=== PATIENT | female | born 1940 | race Caucasian/White ===

== ENCOUNTER 2024-07-26 19:04 | Emergency (ER) | payer OTHER, SELFPAY ==
--- NOTE | ~2024-07-26 | XR_ITS ---
EXAM: XR hip LT 2V w AP pelvis DATE: 07/26/2024 20:39 HISTORY: left hip pain, fall . COMPARISON: 01/30/2019. FINDINGS: Decreased mineralization. No fracture or dislocation. No lytic or blastic lesion. Left hip arthroplasty hardware, no hardware fracture or abnormal perihilar hardware lucency. Heterotopic bone formation at the left hip. Aortic endograft. Lumbar fusion hardware. No erosion or periosteal change . Urine collection device. Atherosclerotic calcifications. Surgical clips over the lower lumbar spine and left hip. IMPRESSION: No acute osseous finding in the pelvis or left hip. No radiographic evidence of hardware related complication. Reviewed, dictated and finalized at location K. ING AND BAKING OPERATOR
--- NOTE | ~2024-07-26 | CT_ITS ---
EXAMINATION: CT brain wo con DATE: 07/26/2024 20:51 INDICATION: fall . TECHNIQUE: Computed tomography (CT) of the head was performed without intravenous contrast. The mA wa s adjusted according to patient size. Iterative reconstruction technique was employed. The dose-lengt h product was 983.67 mGy-cm. COMPARISON: None. FINDINGS: No acute intracranial hemorrhage or extra-axial fluid collection. No hydrocephalus, mass, or herniation. No acute ischemic infarct. Unremarkable dural venous sinus attenuation. No acute osseous abnormality. Poorly pneumatized mastoid air cells. Left middle ear fluid. Bilateral maxillary and ethmoid mucosal thickening, the remaining aerated spaces are clear. Mild atrophy and chronic white matter change. Atherosclerotic intracranial calcification. Bilateral l ens replacements. The right ossicles are not confidently visualized, remaining middle ear structures on the right appear normal. IMPRESSION: No acute intracranial process. Reviewed, dictated and finalized at location K. OGRAPHIC RETOUCHER APPRENTICE
--- NOTE | ~2024-07-26 | XR_ITS ---
EXAMINATION: XR chest 1V Exam Date/Time: 07/26/2024 20:30 CIRCULAR KNITTER HISTORY: fall Comparison: 05/02/2004. RESULT: Lines, tubes, and devices: Left chest pacer with intact leads. Incompletely visualized aortic stent graft and lumbar fusion hardware. Lungs and pleura: Senescent/emphysematous change, otherwise clear. Cardiomediastinal silhouette: Stable. Other: No acute osseous or upper abdominal finding. IMPRESSION: No acute cardiopulmonary process. Reviewed, dictated and finalized at location K. ULAR KNITTER
--- NOTE | ~2024-07-26 | CT_ITS ---
EXAMINATION: CT pelvis wo con DATE: 07/26/2024 23:30 INDICATION: Left hip pain post fall TECHNIQUE: High resolution computed tomography (CT) of the pelvis was performed without intravenous c ontrast. Additional sagittal and coronal reconstructions were performed. Automated exposure control a nd iterative reconstruction technique were employed. The dose-length product was 187.72 mGy-cm. COMPARISON: Radiographs dated 07/26/[address] dated 01/28/2019 FINDINGS: L4 laminectomy. Partially visualized lower lumbar posterior spinal fusion with bilateral vertical ben and pedicle screw fixation at L4-L5. There is also anterior spinal fusion with bone graft cage at L4 -L5. Chronic bone graft harvest site at the left posterior iliac spine. Partially visualized noncemen lydia left total hip arthroplasty which appears well seated with no periprosthetic lucency to suggest l oosening or infection. 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 No acute fractures. 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 Partially visualized aortobiiliac endoluminal stent graft extending to the bifurcation of the bila teral common iliac arteries. There multiple diverticula along the visualized portions of the colon wi thout adjacent from trace stranding to suggest diverticulitis. Bladder is normal. The uterus is not i dentified and has likely been surgically resected. No free fluid in the pelvis. No pathologically enl arged pelvic or inguinal lymphadenopathy. IMPRESSION: 1. Status post left total hip arthroplasty with chronic nonunited avulsion fracture at the left great er trochanter. No acute osseous abnormality. 2. Postoperative changes in the lower lumbar spine including L4 laminectomy and partially visualized and instrumented anterior and posterior spinal fusion at L4-L5 which extends to L3-L4 on the prior ra diographs. 3. Diverticulosis. Reviewed, dictated and finalized at location A. MODERATOR IMPRESSION: 1. Status post left total hip arthroplasty with chronic nonunited avulsion frac ture at the left greater trochanter. No acute osseous abnormality. 2. Postoperative changes in the lower lumbar spine including L4 laminectomy and partially visualized and instrumented anterior and posterior spinal fusion at L4-L5 which extends to L3-L4 on the prior radiographs. 3. Diverticulosis.
--- OUTSIDE RECORDS SUMMARY | 2024-07-26 19:05 | XMS_ITS | Referral Summary ---
Author Organization [facility] Address [address] [place] [address] Care Team Providers Care License Inspector Name Role Phone Anya Whittaker RN Unavailable [phone] Urbano Gonzalez MD Primary Care Provider [phone] Source Comments [facility],non-owned Affiliates and Associated Physician Practices is amultiple site organization consisting of ambulatory clinics and hospital sitesin [place], [place], [place] and [place]. This disclosure is being madepursuant to the Care Everywhere program and may not contain all information available regarding this patient. Last updated 18.[facility] Allergies Active Allergy Reactions Criticality Noted Date Comments Aspirin 02/10/2010 Stomach upset Propoxyphene Nausea and/or Vomiting 02/10/2010 Epinephrine Seizures 11/10/2014 Used with lidocaine at dentist, had seizure from it per patient Morphine Nausea and/or Vomiting 11/10/2014 Dsywvdrl-Qcvfonctkb-Dii ymyxin Rash Low 02/10/2010 Propoxyphene N-Apap Nausea and/or Vomiting 02/10/2010 Tramadol Nausea and/or Vomiting 11/10/2014 Medications * Be aware that medications may not be up to date on this document. Alwaysverify current medications with the patient. Medication Sig Dispensed Refills Start Date End Date Status omeprazole (PRILOSEC) 20 MG capsule Take 20 mg by mouth daily before breakfast. Active aspirin (ASPIRIN) 81 MG tablet Take 81 mg by mouth once daily Takes every other day (will bruise badly with daily adm - MD aware_ Active simvastatin (ZOCOR) 20 MG tablet Take 20 mg by mouth once daily Active gabapentin (NEURONTIN) 600 MG tablet Take 600 mg by mouth 2 times daily Active sertraline (ZOLOFT) 100 MG tablet 03/18/2017 Active lisinopril (PRINIVIL; ZESTRIL) 40 MG tablet Take 40 mg by mouth once daily Active acetaminophen-codei ne (TYLENOL #3) 300-30 MG tablet Take 1 tablet by mouth every 6 hours as needed for Pain 15 tablet 01/02/2018 Active Additional Information Patient not taking.Reported on 05/08/2019 amLODIPine (NORVASC) 5 MG tablet Take 1 tablet by mouth once daily 90 tablet 5 07/15/2018 Active Additional Information Patient not taking.Reported on 05/08/2019 Active Problems Problem Noted Date Diagnosed Date Cardiac pacemaker in situ 01/16/2018 Bradycardia on ECG 12/10/2017 Exertional dyspnea 12/10/2017 SSS (sick sinus syndrome) 12/10/2017 History of AAA (abdominal aortic aneurysm) repai r 12/10/2017 Current smoker 12/10/2017 Essential hypertension 12/10/2017 Dyslipidemia 12/10/2017 Abdominal aortic aneurysm (AAA) without rupture 03/31/2016 Dizzy 02/10/2010 Social History Tobacco Use Types Packs/Day Years Used Date Smoking Tobacco: Former Cigarettes 2 20 Smokeless Tobacco: Never Tobacco Cessation:Ready to Q uit: No; Counseling Given: Yes Alcohol Use Standard Drinks/Week Comments No 0 (1 standard drink = 0.6 oz pur e alcohol) Sex and Gender Information Value Date Recorded Sex Assigned at Not on file Gender Identity Not on file Sexual Orientation Not on file Last Filed Vital Signs Vital Sign Reading Time Taken Comments Blood Pressure 156/71 05/08/2019 12:54 PM PAPER INSERTER Pulse 64 05/08/2019 12:54 PM PAPER INSERTER Temperature 36.4 ??C (97.6 ??F) 05/08/2019 12:[address] Respiratory Rate 16 11/01/2018 10:16 AM CDT Oxygen Saturation 97% 05/08/2019 12:54 PM PAPER INSERTER Inhaled Oxygen Concentration - - Weight 61.2 kg (135 lb) 05/08/2019 2:29 PM PAPER INSERTER Height 170.2 cm (5' 7 ) 05/08/2019 2:29 PM PAPER INSERTER Body Mass Index 21.14 05/08/2019 2:29 PM PAPER INSERTER Functional Status Functional Status Response Date of Assess ment Is person deaf or have sal us hearing difficulty? No-uses hearing aid to right ear 12/09/2014 Is person blind or have seri ous difficulty seeing? No 12/09/2014 Does person have serious difficulty walking/climbing stairs? No 12/09/2014 Does person have difficulty dressing/bathing? No 12/09/2014 Does person have difficulty doing errands alone? No 12/09/2014 Cognitive Status Response Date of Assessm ent Does person have difficulty concentrating/remembering/making decisions? No 12/09/2014 Plan of Treatment Not on file Medical Devices Implanted Type Area Propulsion Machinery Service Engineer Device Identifier Shelf Expiration Date Model / Serial / Lot Excluder [id number] 28mm X 12.0mm X 16cm - [id number] Implanted:Qty: 1 on 12/09/2014 by Chuck Anderson MD at [facility] Left: Groin [employer] 07/25/2017 [id number] / [id number] / Grft Excluder Contra 12mm X 120mm Implanted:Qty: 1 on 12/09/2014 by Chuck Anderson MD at [facility] Left: [employer] [id number] / / Advance Directives * Full Code (Latest Code Status on File) Date Activated Date Inactivated Comments 12/09/2014 2:47 PM 12/10/2014 11:40 AM Care Teams License Inspector Relationship Specialty Start Date End Date Urbano Gonzalez MD [address] [place] [address] PCP - General Internal Medicine 04/25/16 Anya Whittaker, RN Waist Cutter 12/09/14
--- OUTSIDE RECORDS SUMMARY | 2024-07-26 19:05 | XMS_ITS | Continuity of Care Document ---
Author Organization [facility] Address [address] [place] [address] Phone Care Team Providers Care Balloon Artist Name Role Phone Faisal Koch Unavailable Unavailable Procedures Procedure Date Post-op Follow-up Visit BF Plastic Sphcyl [place] To +/-4d .12-2d Vision Svcs Frames Purchases Frames Deluxe Scratch Resistant Coating Post-op Follow-up Visit Remove Cataract, Insert Lens PreOp Assessment Performed Eye Exam, New Patient Echo Exam Of Eye Advance Directives Directive Yes / No Effective Date File Name No Information Encounters Encounter Description Practice Location Reason(s) For Visit Diagnoses Date Provider Providers Copied on Encounter [facility], [address] [place] [address] [address], [place], [place], [id number], [place] tel:[phone] SEC [facility][note 3] No Information Oct-2 2-201 0 Zee Malone. [facility] , [address], [place], [address], [place]. tel:[phone] [facility], [address] [place] [address] [address], [place], [place], [id number], [place] tel:[phone] [facility][note 3] No Information Oct-2 2-201 0 [facility] . [address], [address], [place], [place], [id number], [place]. tel:[phone] Referring Provider: [facility] [address], [place], [place], [facility]. tel:[phone] [facility], [address] [place] [address] [address], [place], [place], [id number], tel:[phone] SEC [facility] No Information Oct-0 8-201 0 [facility]. [facility] [address], [address], [place], [place], [facility], [place]. tel:[phone] [facility], [address], [place], [place], [id number], tel:[phone] [facility] No Information Oct-0 7-201 0 Zee Malone. [address] [place] [address] [address], [address], [place], [place], [facility], . tel:[phone] [facility], [address] [place] [address] [address], [place], [place], [id number], tel:[phone] [facility] No Information Sep-2 4-201 0 Zee Malone. [address] [place] [address] [address], [address], [place], [place], [facility], . tel:[phone] Referring Provider: Faisal Joiner, [facility] [address], [place], [place], [facility]. tel:[phone] Family History Family Member Type Diagnosis Age At Onset No Information Payers Payer name Insurance type Covered republican ID Authoriza tion(s) No Information Social History Type Description Quantity Date Captured Comments Sex Female Smoking Status No Information Chief Complaint And Reason For Visit No Information Reason For Referral Reason For Referral No Information History Of Present Illness Encounter Date Complaint History Of Prese nt Illness No Information Functional Status Date Functional Assessmen t No Information Instructions Date Instruction Additional Infor mation No Information Assessments Type Assessment Date No Information Patient Care Teams Name Effective Dates (start - stop) Status Members No Information
--- OUTSIDE RECORDS SUMMARY | 2024-07-26 19:05 | XMS_ITS | CONTINUITY OF CARE DOCUMENT ---
Author Name agnes alarcon Address Unknown Organization [facility] Address [address] [place] [address] Phone [phone] Care Team Providers Care Bilingual Speech Language Pathologist Name Role Phone Richi Sparks MD Unavailable Urbano Gonzalez MD Unavailable Urbano Gonzalez MD Unavailable [phone] PROBLEMS Condition Status Date Provider Notes Bradycardia active Richi Sparks MD Hypertension active Richi Sparks MD Carotid bruit active Richi Sparks MD Tobacco abuse active Osmar Samuel ENCOUNTERS Date Type Provider Location Encounter Diag nosis 5 - 5 In-person encounter Office Visit Richi Sparks MD [facility] Tobacco abuse 3 - 3 In-person encounter Office Visit Richi Sparks MD [facility] 6 - 3 In-person encounter Office Visit Richi Sparks MD [facility] BradycardiaHypertensionCarotid bruit VITAL SIGNS Date Observation Value Provider Body Mass Index (Ratio) 19.61 kg/m2 Will christian Samuel pulse rate 72 /min Xu ritchie oxygen saturation, oximetry 99 % Xu Eckert blood pressure, diastolic 64 mm[Hg] Noel Eckert blood pressure, systolic 124 mm[Hg] Mary Eckert respiratory rate E&M 16 /min Xu Eckert weight E&M 129 [lb_av] uX ritchie height E&M 68 [in_i] [facility] Body Mass Index (Ratio) 19.70 kg/m2 Lola parks Tres blood pressure, diastolic 74 mm[Hg] Sa flor Sparks MD blood pressure, systolic 190 mm[Hg] Jami Sparks MD oxygen saturation, oximetry 93 % Richi Griggsvajr SÁNCHEZ pulse rate 51 /min Richi Kalvait is weight E&M 129.6 [lb_av] Richi Griggsvai douglas SÁNCHEZ height E&M 68 [in_i] Richi Griggsvait is Body Mass Index (Ratio) 19.70 kg/m2 Ajith Sparks MD blood pressure, resting Yes Mimi Howard blood pressure, diastolic 74 mm[Hg] Dianna Howard blood pressure, systolic 190 mm[Hg] Mckenna Howard oxygen saturation, oximetry 93 % Emily Howard respiratory rate E&M 18 /min Monica Howard pulse rate 51 /min Emily avalos weight E&M 129.6 [lb_av] Emily moran height E&M 68 [in_i] Emily avalos ALLERGIES Allergy Name Onset Date Reaction Criticality Status EPINEPHRINE High Criticality active NEOSPORIN High Criticality active HISTORY OF MEDICATION USE Medication Status Instructions Dates Provider Indications Com cresencio LISINOPRIL 40 MG ORAL TABLET active take 1 tablet once daily Xu Eckert NORVASC 5 MG ORAL TABLET active ONE TAB. DAILY Venecia Joshua SERTRALINE HCL 100 MG ORAL TABLET active 1 tab once daily Emily Howard LISINOPRIL 10 MG ORAL TABLET active ONE TAB. DAILY Emily Howard TYLENOL WITH CODEINE #3 300-30 MG ORAL TABLET active 1 tab as needed for pain Emily Howard NEURONTIN 600 MG ORAL TABLET active 1 tab twice daily Emily Howard SIMVASTATIN 20 MG ORAL TABLET active ONE TAB. DAILY Emily Howard ASPIRIN ADULT LOW DOSE 81 MG ORAL TABLET DELAYED RELEASE active One Tab By Mouth Daily Emily Howard PRILOSEC 20 MG ORAL CAPSULE DELAYED RELEASE active ONE TAB. DAILY Emily Howard SOCIAL HISTORY Date Observation Value Provider social history reviewed E&M revi ewed - no changes required Venecia Joshua cigarette use yes Emily moran smoking status Current every day smoker M Junaid Howard number of grandchildren Richi Samuel social history reviewed E&M revi ewed - no changes required Osmar Samuel social history E&M S moking History: P atanna marie currently smokes every day. P atient has been counseled to quit. Osmar Samuel smoking/tobacco cess ation, patient education and counseling yes Osmar Samuel number of years as a smoker 20 a Emily Howard smoking history, tot al pack/day 1.5 Emily Howard FAMILY HISTORY Family Member Condition Full Sister Family History of Co ronary Artery Disease: Mother Family History of Co ronary Artery Disease: INSURANCE PROVIDERS Payer name Policy type / Coverage type [place] red libertarian ID [facility] [id number] [place] MEDICARE PART B Medicare [id number] [facility] Medicaid 2 [id number] ADVANCE DIRECTIVES Name Date DISCUSSED - NO DECISION MADE TREATMENT PLAN Date Name Performer Electrophysiology fa xed 12/06/17/kk:The Patient was reencouraged to stop smoking. T he patient is between 55-77 years old and has smoked at least 30 pack years. The patient is either a current smoker or has quit within the past 15 years. T he patient is recommended to have low dose CT scan for lung cancer screening. Has been counseled regarding the importance of tobacco cessation and abstinence. Shared decision making during this office visit included discussion of the benefits and harms of screening, possible future recommendations of follow-up diagnostic testing, and total amount of radiation exposure. The patient was recommended to have annual low dose CT scan for lung cancer screening and is willing to undergo diagnosis and treatment. S chedule PFTs. Osmar Samuel Electrophysiology fa xed 12/06/17kk:Dips into 30s at times per monitor worn by patient. R hythm: Sinus Rhythm. T he average heart rate was 62BPM with a maximum heart rate of 84BPM. T he minimum heart rate was 34BPM. S chedule echo. R ecommend PPM. Osmar Samuel Electrophysiology faxed 12/06/17 Osmar Samuel Electrophysiology fa xed 12/06/17kk: B P today: 124/64 P rior BP: 190/74 (09/14/2017) Osmar Samuel Electrophysiology: B P today: 190/74 P rior BP: 190/74 (09/07/2017) Venecia Joshua Electrophysiology:Check carotids today. Venecia Joshua Electrophysiology Essence Miquel mason Electrophysiology:HR in 30s-40s. A symptomatic, able to carry out regular activities most of the time, but will have to stop and rest after about 10 minutes of slow-paced walking. W ill check 48 hour monitor. Osmar Samuel Electrophysiology:Wi ll Start Norvasc 10mg daily. C heck 24 hour blood pressure monitor. BP today: 210/72 Osmar Samuel Date Name CBC (INCLUDES DIFF/P LT) PROTHROMBIN TIME WIT H INR PARTIAL THROMBOPLAST IN TIME, ACTIVATED URINALYSIS, COMPLETE W/REFLEX TO CULTURE COMPREHENSIVE METABO LIC PANEL W/EGFR Complete Echo DLCO - 59294 FRC - 75458 FVC - [address] Mobile Cardiac Tele Carotid Duplex Bilat eral HISTORY OF PROCEDURES Procedure Date Procedure Name Provider Procedure Notes S tatus Counseling LDCT iRchi Sparks MD completed EKG Richi Sparks MD comp leted EKG Richi Sparks MD comp leted Event Monitor Richi Sparks MD c ompleted EKG Richi Sparks MD comp leted
--- OUTSIDE RECORDS SUMMARY | 2024-07-26 19:05 | XMS_ITS | Patient Health Summary ---
Author Organization [facility] Address [address] [place] [address] Care Team Providers Care Banana Ripening Room Supervisor Name Role Phone Anya Whittaker RN Unavailable [phone] Urbano Gonzalez MD Primary Care Provider [phone] Note from [facility],non-owned Affiliates and Associated Physician Practices is amultiple site organization consisting of ambulatory clinics and hospital sitesin [place], [place], [place] and [place]. This disclosure is being madepursuant to the Care Everywhere program and may not contain all information available regarding this patient. Last updated 18.[facility] Allergies * Aspirin(Stomach upset) * Propoxyphene(Nausea and/or Vomiting) * Epinephrine(Seizures) * Morphine(Nausea and/or Vomiting) * Uswhjkas-Cgspbexjnk-Lkraedfqq(Rash) -Low Criticality * Propoxyphene N-Apap(Nausea and/or Vomiting) * Tramadol(Nausea and/or Vomiting) Medications * Be aware that medications may not be up to date on this document. Alwaysverify current medications with the patient. * omeprazole (PRILOSEC) 20 MG capsule Take 20 mg by mouth daily before breakfast. * aspirin (ASPIRIN) 81 MG tablet Take 81 mg by mouth once daily Takes every other day (will bruise badly with daily adm - MD aware_ * simvastatin (ZOCOR) 20 MG tablet Take 20 mg by mouth once daily * gabapentin (NEURONTIN) 600 MG tablet Take 600 mg by mouth 2 times daily * sertraline (ZOLOFT) 100 MG tablet(Started 03/18/2017) * lisinopril (PRINIVIL; ZESTRIL) 40 MG tablet Take 40 mg by mouth once daily * acetaminophen-codeine (TYLENOL #3) 300-30 MG tablet(Started 01/02/2018) Take 1 tablet by mouth every 6 hours as needed for Pain * amLODIPine (NORVASC) 5 MG tablet(Started 07/15/2018) Take 1 tablet by mouth once daily 5 refills remaining Active Problems Problem Noted Date Diagnosed Date [...] Comments Blood Pressure 156/71 05/08/2019 12:54 PM [facility] Pulse 64 05/08/2019 12:54 PM [facility] Temperature 36.4 ??C (97.6 ??F) 05/08/2019 12:[address] Respiratory Rate 16 11/01/2018 10:16 AM CDT Oxygen Saturation 97% 05/08/2019 12:54 PM [facility] Inhaled Oxygen Concentration - - Weight 61.2 kg (135 lb) 05/08/2019 2:29 PM [facility] Height 170.2 cm (5' 7 ) 05/08/2019 2:29 PM [facility] Body Mass Index 21.14 05/08/2019 2:29 PM [facility] Medical Devices Implanted Type Area Savings Teller Device Identifier Shelf Expiration Date Model / Serial / Lot Excluder C3 28mm X 12.0mm X 16cm - [id number] Implanted:Qty: 1 on 12/09/2014 by Chuck Anderson MD at [facility] Left: Groin [employer] 07/25/2017 [id number] / [id number] / Grft Excluder Contra 12mm X 120mm Implanted:Qty: 1 on 12/09/2014 by Chuck Anderson MD at [facility] Left: Gro[employer] [id number] / / Procedures * PACEMAKER CLINIC CHECK(Performed 09/22/2019) Performed for Sinus bradycardia * PACEMAKER CLINIC CHECK(Performed 05/08/2019) Performed for Sinus bradycardia * VAS LTD ABD DOPPLER AO IVC ILIAC(Performed 05/08/2019) Performed for Abdominal aortic aneurysm (AAA) without rupture (HCC) * PACEMAKER CLINIC CHECK(Performed 04/20/2019) Performed for Sinus bradycardia * PACEMAKER CLINIC CHECK(Performed 11/01/2018) Performed for Sinus bradycardia * PACEMAKER CLINIC CHECK(Performed 08/06/2018) Performed for Sinus bradycardia * VAS LTD ABD DOPPLER AO IVC ILIAC(Performed 05/02/2018) Performed for Abdominal aortic aneurysm (AAA) without rupture (HCC) * PACEMAKER CLINIC CHECK(Performed 01/11/2018) Performed for Sinus bradycardia * CARDIAC PROCEDURE ORDER(Performed 01/04/2018) * CARDIAC PACER/DEFIB ORDER(Performed 01/04/2018) * CARDIAC RHYTHM STRIP ORDER(Performed 01/04/2018) * XR CHEST 2VW(Performed 01/02/2018) Performed for SSS (sick sinus syndrome) ([facility]) * EP LAB CONSULT(Performed 01/01/2018) * XR CHEST 1VW(Performed 01/01/2018) Performed for SSS (sick sinus syndrome) ([facility]) * PT-INR(Performed 12/28/2017) Performed for Sick sinus syndrome , Pre-op testing * CBC W AUTO DIFFERENTIAL(Performed 12/28/2017) Performed for Pre-op testing * BASIC METABOLIC PANEL (CALCIUM TOTAL)(Performed 12/28/2017) Performed for Pre-op testing * NM MYOCARD PERF REST STRESS(Performed 12/11/2017) Performed for Bradycardia, Chest pain, unspecified type * STRESS TEST LEXISCAN (NUCLEAR)(Performed 12/11/2017) Performed for Bradycardia on ECG * EKG 12-LEAD(Performed 12/07/2017) Performed for Bradycardia on ECG * ECHOCARDIOGRAM 2D WITH DOPPLER(Performed 11/23/2017) * HC DUPLEX CAROTID BILAT(Performed 09/14/2017) * RHYTHM STRIP(Performed 09/09/2017) * VAS LTD ABD DOPPLER AO IVC ILIAC(Performed 04/19/2017) Performed for Abdominal aortic aneurysm (AAA) without rupture (HCC) * CT ABDOMEN PELVIS WWO CONTRAST(Performed 01/11/2017) * VAS LTD ABD DOPPLER AO IVC ILIAC(Performed 04/04/2016) Performed for Abdominal aortic aneurysm (AAA) without rupture (HCC) * CT ANGIO ABDOMEN PELVIS(Performed 02/17/2015) Performed for Postop check, AAA (abdominal aortic aneurysm) (HCC) * CREATININE BLOOD - POINT OF CARE (IP)(Performed 02/17/2015) * CARDIAC RHYTHM STRIP ORDER(Performed 12/11/2014) * APHERESIS/TRANSFUSION ORDER(Performed 12/11/2014) * CBC W AUTO DIFFERENTIAL(Performed 12/10/2014) * BASIC METABOLIC PANEL (CALCIUM TOTAL)(Performed 12/10/2014) * ENDOVASCULAR REPAIR ABDOMINAL AORTIC ANEURYSM (AAA)(Performed 12/09/2014) Performed for Abdominal aneurysm without mention of rupture (HCC) * FL AAA ENDOVASCULAR REPAIR(Performed 12/09/2014) Performed for Aortic aneurysm (HCC) * BLOOD TYPE VERIFICATION(Performed 12/09/2014) * EKG 12-LEAD(Performed 12/09/2014) Performed for Preop examination * CROSSMATCH RBC LEUKOREDUCED(Performed 12/09/2014) * CROSSMATCH RBC LEUKOREDUCED(Performed 12/09/2014) * TYPE + SCREEN PANEL(Performed 12/09/2014) * HGB HCT PANEL(Performed 12/09/2014) * BASIC METABOLIC PANEL (CALCIUM TOTAL)(Performed 12/09/2014) Performed for Preop examination * CT ANGIO ABDOMEN PELVIS(Performed 11/05/2014) Performed for AAA (abdominal aortic aneurysm) (HCC) * CREATININE BLOOD - POINT OF CARE (IP)(Performed 11/05/2014) * IMAGING/RADIOLOGY/XRAY RESULTS ORDER(Performed 10/14/2014) * CARDIAC EKG ORDER(Performed 02/11/2010) * CARDIAC EKG ORDER(Performed 02/11/2010) Results * VAS LTD ABD DOPPLER AO IVC ILIAC (05/08/2019 2:05 PM [facility]) Only the most recent of4 resultswithin the time period is included. Anatomical Region Laterality Modality Ultrasound 05/08/2019 1:47 PM [facility] Narrative Procedure Note Chuck Anderson MD - 05/08/2019 [facility] [place] [address], [address] [place] [address] Abdominal Aorto-Iliac Report Pat.Name: FRANCIA MCKOY Pat.ID: [id number] .Date: 05/08/2019 Exam Time: 1:47:00 PM Study Type:Abd. Aorta-Iliac Age: 2 1940,78Y Sex: FEMALE Sonogrphr: José Luis Stanley RVT Pat. Stat.:Outpatient ICD - 9: I71.9 Aortic aneurysm of unspecified site CPT - 4: 28158 Procedures: Aortic Artery Duplex - Limited Race: 2 Visit ID: [id number] ++++++++++++++++++++++++++++++++++++ SUMMARY: ++++++++++++++++++++++++++++++++++++ Patent abdominal aortic endoluminal stent graft. ++++++++++++++++++++++++++++++++++++ FINDINGS: ++++++++++++++++++++++++++++++++++++ Procedure: Abdominal aorta and iliac arteries were examined with duplex and color flow imaging as well as spectral Doppler analysis. Study Quality: This study is of adequate technical quality. AO: The abdominal aorta measures 3.8 cm in the mid segment of the Aorta. No leak detected at this time. Signed 05/08/2019 05:17 PM Chuck Anderson MD Chuck Anderson MD VASCULAR LAB ORDERAB LES * PACEMAKER CLINIC CHECK (11/01/2018 10:44 AM CDT) Only the most recent of3 resultswithin the time period is included. Benjamín Reyes MD CARDIAC SERVICES ORDERABLES * CARDIAC PROCEDURE ORDER (01/04/2018 2:23 AM CDT) Narrative 01/04/2018 2:23 AM CDT Ordered by an unspecified provider. Scanned Document CARDIAC SERVICES ORD ERABLES * CARDIAC PACER/DEFIB ORDER (01/04/2018 2:23 AM CDT) Narrative 01/04/2018 2:23 AM CDT Ordered by an unspecified provider. Scanned Document CARDIAC SERVICES ORD ERABLES * CARDIAC RHYTHM STRIP ORDER (01/04/2018 2:21 AM CDT) Only the most recent of2 resultswithin the time period is included. Narrative 01/04/2018 2:21 AM CDT Ordered by an unspecified provider. Scanned Document CARDIAC SERVICES ORD ERABLES * XR CHEST 2VW (01/02/2018 7:41 AM CDT) Anatomical Region Laterality Modality Chest Radiographic Taina ging 01/02/2018 7:48 AM CDT Impressions 01/02/2018 7:49 AM CDT No acute disease in the chest. Reading Radiologist: Amelia Faith MD on 01/02/2018 at 7:49 AM Narrative 01/02/2018 7:49 AM CDT PA AND LATERAL CHEST INDICATION: Sick sinus syndrome FINDINGS: The lungs are clear. There is hyperinflation. Dual-lead pacemaker is noted. Aorta is calcified. The mediastinal contour and heart size are within normal limits. The pulmonary vascularity is normal. The osseous structures are unremarkable. Procedure Note Amelia Faiht MD - 01/02/2018 PA AND LATERAL CHEST INDICATION: Sick sinus syndrome FINDINGS: The lungs are clear. There is hyperinflation. Dual-lead pacemaker is noted. Aorta is calcified. The mediastinal contour and heart size are within normal limits. The pulmonary vascularity is normal. The osseous structures are unremarkable. IMPRESSION No acute disease in the chest. Reading Radiologist: Amelia Faith MD on 01/02/2018 at 7:49 AM Benjamín Reyes MD DIAGNOSTIC IMAGIN G ORDERABLES * EP Lab Consult (01/01/2018 6:24 PM CDT) [facility] CARDIAC SERVICES - 01/01/2018 6:24 PM CDT Benjamín Reyes MD ? 01/01/2018 ??6:24 PM ??Pacemaker Implantation Report ??01/01/2018 ??Referring Physician: ?Willa Henry MD, [facility] ??Lock Setter: ?Benjamín Reyes MD ??Procedure Performed: ?Implantation of a Medtronic dual chamber pacemaker ([id number]). ??History of Present Illness: ?Francia Mckoy??is a very friendly 77 y.o.??current smoker with sinus node dysfunction, prior TIA (2005), endovascular AAA repair (2014), lumbar fusion (L3-5, 2007), hypertension, dyslipidemia. ?? For the past four months, Ms. Mckoy has experienced worsening fatigue and exertional dyspnea. ??She denies experiencing angina or chest pain. ??In August, a 30 day desk monitor demonstrated multiple episodes of sinus bradycardia with rates as low at 39 bpm occurring in the afternoon. ??She remains off of all sinus joaquin blocking agents. ??Ms. Mckoy presents today for treatment of symptomatic sinus node dysfunction. ??Medications: ?Two grams of Ancef were administered for pre-procedural antibiotic prophylaxis. ??The patient received moderate sedation as provided by anesthesiology. ??Forty milliliters of 1% Lidocaine was utilized for local anesthetic. ??Ancef solution was utilized to flush the pocket copiously at the conclusion of the procedure. ??Procedure: ?The risks and benefits of pacemaker implantation were discussed with Francia Mckoy. ??The risks include, but are not limited to, (06/999), stroke, cardiac arrest, shock, hypotension, heart attack, permanent disability, cardiac surgery, pneumothorax, pericardial effusion and tamponade, infection, endocarditis and renal failure. ??The patient was given time to ask questions, all questions were answered and the patient consented to proceed with the procedure. ??The patient presented to the electrophysiology laboratory in a fasting, nonsedated state. ??The patient was prepped and draped in the usual sterile fashion for device implantation. ??One percent lidocaine was administered to the skin and subcutaneous tissues in the left infraclavicular area for local anesthesia. ??An incision was made in the left infraclavicular area and the incision was carried down to the prepectoral fascia with the use of blunt dissection and electrocautery. ??Electrocautery and blunt dissection were then utilized to create a pocket along the prepectoral fascia inferomedial to the incision. ??After creation of the pocket, excellent hemostasis was verified. ??Using modified Seldinger technique, the axillary vein was accessed over the second rib with two separate sticks. ?? Subsequently, two 0.035 J-tipped wires were advanced into the inferior vena cava (well below the diaphragm). ??A 7-Fr peel-away sheath was then advanced over one J-tipped wire into the innominate vein. ??Through this sheath, with the use of fluoroscopic guidance, a [employer]el[employer] low voltage lead was advanced to the right ventricular apical septum. ??Septal placement of the lead was verified in the 30 degree [place]I projection. ??Once an adequate site was obtained, the lead was actively fixated to the endocardium and testing was performed. ??Adequate current of injury, sensing threshold, pacing threshold and impedance levels were confirmed. ??No evidence of diaphragmatic stimulation was noted with high-output (10 volts) pacing. ??The sheath was split and the lead was sutured to the pectoralis muscle utilizing three 0-Ethibond ties around the suture sleeve. ??A 7-Fr peel-away sheath was then advanced over the second wire into the innominate vein. ??Through this sheath, with the use of fluoroscopic guidance, a low voltage lead was advanced to the right atrial appendage. ??Once an adequate site was obtained, the lead was actively fixated to the endocardium and testing was performed. ??Adequate current of injury, sensing threshold, pacing threshold, and impedance levels were confirmed. ??No evidence of diaphragmatic stimulation was noted with high-output (10 volts) pacing. ??The sheath was split and the lead was sutured to the pectoralis muscle utilizing three 0-Ethibond ties around the suture sleeve. ??Excellent hemostasis was verified. ??The pocket was copiously flushed with Ancef solution. The leads were then interfaced with a [id number] generator (serial number [id number]). ?? The pulse generator and excess leads were placed into the pocket. ??The generator was secured to the pectoralis muscle using one 0-Ethibond tie. ??The pocket was closed in three layers with 2-0, 3-0, and 4-0 Vicryl. ??Wright-lindsay was applied to the incision. ?? The patient tolerated the procedure well. ??There were no complications. ??Device and Lead Information: ?The RV lead is a 5076/58 cm active fixation lead (serial number [id number]). ??R waves were measured at 9 mV and the impedance was 1045 ohms through the device. ??The capture threshold was 0.9 V at 0.5 ms. ??The RA lead is a 5076/52 cm active fixation lead (serial number [id number]). ??P waves were measured at 3 mV and the impedance was 844 ohms through the device. ??The capture threshold was 2.5 V at 0.5 ms. ??The device is set in AAIR <=> DDDR mode with a lower rate of 60 ppm and an upper rate of 130 ppm. ??Impression: ?1. ??Successful implantation of a Medtronic dual chamber pacemaker. ??Plan: ??1. The patient will receive Ancef 1000 mg IV every 8 hours overnight. ??2. In the morning, device interrogation and PA and lateral chest X-ray will be performed. ??3. The patient will be scheduled for a wound check at the the [facility] office ([phone]) within ten days. ??The attending physician was physically present for the entire duration of the procedure. Benjamín Reyes MD ECHO ORDERABLES [facility] * XR CHEST 1VW (01/01/2018 10:56 AM CDT) Anatomical Region Laterality Modality Chest Radiographic Taina ging 01/01/2018 11:0 0 AM CDT Narrative 01/01/2018 11:00 AM CDT Chest single view portable Indication for examination: Cardiac arrhythmia, pacemaker placement. Follow-up. Single AP view of the chest shows placement of a left subclavian transvenous cardiac pacemaker with leads in the right atrium and right ventricle. There is no pleural effusion or pneumothorax. There is patchy bibasilar atelectasis. Heart size and pulmonary vascularity are within normal limits. CONCLUSION: Cardiac pacemaker in place. No pneumothorax or pleural effusion. Reading Radiologist: Robi Jackson MD on 01/01/2018 at 11:00 AM Procedure Note Robi Jackson MD - 01/01/2018 Chest single view portable Indication for examination: Cardiac arrhythmia, pacemaker placement. Follow-up. Single AP view of the chest shows placement of a left subclavian transvenous cardiac pacemaker with leads in the right atrium and right ventricle. There is no pleural effusion or pneumothorax. There is patchy bibasilar atelectasis. Heart size and pulmonary vascularity are within normal limits. CONCLUSION: Cardiac pacemaker in place. No pneumothorax or pleural effusion. Reading Radiologist: Robi Jackson MD on 01/01/2018 at 11:00 AM Benjamín Reyes MD DIAGNOSTIC IMAGIN G ORDERABLES * PT-INR (12/28/2017 11:02 AM CDT) INR 1.0 0.9 - 1.1 [facility] INSURANCE BILL Comment: Conventional Warfarin Anticoagulant Therapy: INR Reference Range: ??2.0-3.0 Intensive Warfarin Anticoagulant Therapy: INR Reference Range: ? 2.5-3.5 PT 10.6 9.5 - 11.6 sec [facility] INSURANCE BILL Blood BLOOD SPECIMEN / Unknown 12/28/2017 11:02 AM CDT 12/28/2017 Narrative Resulting Agency Comment [facility] [address] [address] ??Jose DE OLIVEIRA [phone] Benjamín Reyes MD LAB - COAGULATION ORDERABLES [facility] INSURANCE BILL [address] [place] [address] * (ABNORMAL) CBC W AUTO DIFFERENTIAL (12/28/2017 11:02 AM CDT) Only the most recent of2 resultswithin the time period is included. WBC 6.3 4.4 - 10.7 x10E9/L [facility] INSURANCE BILL RBC 3.81 3.80 - 5.20 x10E12/L [facility] INSURANCE BILL Hemoglobin 12.5 12.0 - 15.6 gm/dL [facility] INSURANCE BILL Hematocrit 38.3 35.9 - 45.5 % [facility] INSURANCE BILL MCV 100.5(H) 80.7 - 98.3 fl [facility] INSURANCE BILL MCH 32.8 26.7 - 34.0 pg [facility] INSURANCE BILL MCHC 32.6 30.8 - 35.9 gm/dL [facility] INSURANCE BILL RDW 12.9 12.1 - 14.9 % [facility] INSURANCE BILL Platelet Count 230 153 - 416 x10E9/L [facility] INSURANCE BILL Comment:MPV FL BLOOD (SSM) 1 0.1 fl 9.4-12.9 Granulocytes % 56.2 44.0 - 73.0 % [facility] INSURANCE BILL Lymphocytes % 31.8 20.0 - 43.0 % [facility] INSURANCE BILL Monocytes % 6.7 5.0 - 13.0 % [facility] INSURANCE BILL Eosinophils % 4.0 0.0 - 6.0 % [facility] INSURANCE BILL Basophils % 1.1 0.0 - 2.0 % [facility] INSURANCE BILL Granulocytes Absolute 3.53 2.01 - 7.14 x10E9/L [facility] INSURANCE BILL Lymphocytes Absolute 2.00 1.07 - 3.94 x10E9/L [facility] INSURANCE BILL Monocytes Absolute 0.42 0.26 - 1.07 x10E9/L [facility] INSURANCE BILL Eosinophils Absolute 0.25 0 - 0.47 x10E9/L [facility] INSURANCE BILL Basophils Absolute 0.07 0 - 0.08 x10E9/L [facility] INSURANCE BILL Immature Granulocytes 0.2 0 - 1 % [facility] INSURANCE BILL Immature Granulocytes Absolute 0.01 0.00 - 0.06 x10E9/L [facility] INSURANCE BILL nRBC 0 /100 WBC [facility] INSURANCE BILL Blood BLOOD SPECIMEN / Unknown 12/28/2017 11:02 AM CDT 12/28/2017 Narrative Resulting Agency Comment [facility] [address] ??Jose DE OLIVEIRA [phone] Benjamín Reyes MD LAB - HEMATOLOGY ORDERABLES [facility] INSURANCE BILL [address] [place] [address] * (ABNORMAL) BASIC METABOLIC PANEL (CALCIUM TOTAL) (12/28/2017 11:02 AM CDT) Only the most recent of3 resultswithin the time period is included. Glucose 83 74 - 106 mg/dL [facility] INSURANCE BILL BUN 10 7 - 21 mg/dL [facility] INSURANCE BILL Creatinine 0.78 0.50 - 1.30 mg/dL [facility] INSURANCE BILL Sodium 139 136 - 145 mmol/L [facility] INSURANCE BILL Potassium 4.6 3.5 - 5.1 mmol/L [facility] INSURANCE BILL Chloride 102 98 - 107 mmol/L [facility] INSURANCE BILL CO2 33(H) 22 - 31 mmol/L [facility] INSURANCE BILL Calcium 9.7 8.5 - 10.1 mg/dL [facility] INSURANCE BILL eGFR by MDRD >60 mL/min/1.7 3m2 [facility] INSURANCE BILL eGFR by MDRD >60 mL/min/1.7 3m2 [facility] INSURANCE BILL Blood BLOOD SPECIMEN / Unknown 12/28/2017 11:02 AM CDT 12/28/2017 Narrative Resulting Agency Comment [facility] [address] [address] ??Jose DE OLIVEIRA [phone] Benjamín Reyes MD LAB - CHEMISTRY O RDERABLES [facility] INSURANCE BILL [address] [place] [address] * NM MYOCARD PERF REST STRESS (12/11/2017 11:15 AM CDT) Anatomical Region Laterality Modality Chest Nuclear Medicine 12/11/2017 12:5 0 PM CDT Impressions 12/11/2017 12:58 PM CDT 1. ??No evidence of pharmacologically induced reversible defect to suggest ischemia. 2. ??Normal left ventricle wall motion, with a composite left ventricular ejection fraction of 65 %. Reading Radiologist: Chuck Martinez MD on 12/11/2017 at 12:58 PM Narrative 12/11/2017 12:58 PM CDT MYOCARDIAL SPECT MULTI MYOCARDIAL PERFUSION WITH EJECTION FRACTION MYOCARDIAL PERFUSION WITH WALL MOTION INDICATION: Chest Pain RADIOPHARMACEUTICAL: 10 mCi of ??Tc99m Tetrofosmin at rest and 30mCi Tc99m Tetrofosmin at stress. 0.4 mg of Lexiscan given intravenously. TECHNIQUE: After the resting SPECT images were made, the patient was given the Lexiscan dose and the stress dose of tracer was given, and the patient was reimaged, using SPECT technique. FINDINGS: Stress and rest images show homogeneous uptake of radiotracer throughout the left ventricle. No significant fixed or reversible perfusion defects are seen. WALL MOTION ANALYSIS: 3-D reconstruction of the gated data shows the left ventricular ejection fraction to measure 65 %. ??No wall motion abnormality is present. Procedure Note Chuck Martinez MD - 12/11/2017 MYOCARDIAL SPECT MULTI MYOCARDIAL PERFUSION WITH EJECTION FRACTION MYOCARDIAL PERFUSION WITH WALL MOTION INDICATION: Chest Pain RADIOPHARMACEUTICAL: 10 mCi of Tc99m Tetrofosmin at rest and 30mCi Tc99m Tetrofosmin at stress. 0.4 mg of Lexiscan given intravenously. TECHNIQUE: After the resting SPECT images were made, the patient was given the Lexiscan dose and the stress dose of tracer was given, and the patient was reimaged, using SPECT technique. FINDINGS: Stress and rest images show homogeneous uptake of radiotracer throughout the left ventricle. No significant fixed or reversible perfusion defects are seen. WALL MOTION ANALYSIS: 3-D reconstruction of the gated data shows the left ventricular ejection fraction to measure 65 %. No wall motion abnormality is present. IMPRESSION 1. No evidence of pharmacologically induced reversible defect to suggest ischemia. 2. Normal left ventricle wall motion, with a composite left ventricular ejection fraction of 65 %. Reading Radiologist: Chuck Martinez MD on 12/11/2017 at 12:58 PM Benjamín Reyes MD NM ORDERABLES * STRESS TEST LEXISCAN (NUCLEAR) (12/11/2017 10:11 AM CDT) [facility] Stress Test Summary For full formatted report, please see the report link in the order. Acquisition Time: 2017-12-11 ??10:11:54 Total Exercise Time: 00:00:57 Test Indications: bradycardia Medications: Protocol: LEXISCAN ? Max HR: 089 BPM ??61% of ??Pred: 144 BPM Max BP: 161/061 mmHG Max Work Load: 1.0 METS Reason for Termination: Protocol Complete Resting ECG: Normal Functional Capacity: HR Response to Exercise: BP Resoonse to Exercise: Chest Pain: Arrhythmias: ST Changes: no significant st change Overall Impression: Findings to be correlated w/imaging report No ECG ?? evidence of ??ischemia Diagnosis: Confirmed by GUILLERMO SAM MD ([id number]) on 12/11/2017 3:18:28 PM Attending Physician: Referred By: BENJAMÍN REYES ? Overread By: GUILLERMO SAM MD [facility] STRESS 12/11/2017 10:1 1 AM CDT 12/11/2017 3:18 PM CDT Benjamín Reyes MD CARDIAC SERVICES ORDERABLES Performing Organization Address [facility] de Phone Number [facility] STRESS * EKG 12-LEAD (12/07/2017) Only the most recent of2 resultswithin the time period is included. Narrative [facility] RESULT SCAN - 12/07/2017 ekg done in office. Benjamín Reyes MD ECG ORDERABLES Performing Organization Address [facility] Co de Phone Number [facility] RESULT SCAN * ECHOCARDIOGRAM 2D WITH DOPPLER (11/23/2017) Richi Sparks MD ECHO ORDERABLES * DUPLEX CAROTID BILAT (09/14/2017) Richi Sparks MD [facility] * RHYTHM STRIP (09/09/2017) Provider Unknown CARDIAC SERVICES ORD ERABLES * CT ABDOMEN PELVIS WWO CONTRAST (01/11/2017) Anatomical Region Laterality Modality Abdomen, Pelvis Other Provider Unknown CT ORDERABLES * CT ANGIO ABDOMEN PELVIS (02/17/2015 12:39 PM CDT) Only the most recent of2 resultswithin the time period is included. Anatomical Region Laterality Modality Abdomen, Pelvis Computed Tomogra phy 02/18/2015 8:44 AM CDT Narrative 02/18/2015 8:55 AM CDT examination: CT angiography abdominal aorta. Indication for examination: Abdominal aortic aneurysm. Previous endograft placement. Contrast-enhanced CT angiography of the abdominal aorta and its branches is performed with thin section helical technique with additional coronal and three-dimensional reconstructions. 100 cc Omnipaque 350 contrast were used. Comparison is made with a prior examination of 11/05/2014. Examination of the abdominal aorta reveals placement of an endograft within the abdominal aorta. This begins below the level of the renal arteries with graft limbs extending into the right and left common iliac artery. Graft is patent. No endoleak is identified at any level. Diameter of the abdominal aorta is unchanged. There is symmetric renal perfusion. There is redemonstration of plaque at the origin of the renal artery bilaterally. Superior mesenteric is patent. There is no retroperitoneal hemorrhage or fluid. No ascites or loculated peritoneal fluid collection. CT angiography of the pelvis reveals that the right and left common, internal and external iliac artery are patent. No severe stenosis is identified. Conclusion: Patent aortoiliac endograft as described. No endoleak identified. No change in diameter of the abdominal aortic aneurysm. Procedure Note Robi Jackson MD - 02/18/2015 examination: CT angiography abdominal aorta. Indication for examination: Abdominal aortic aneurysm. Previous endograft placement. Contrast-enhanced CT angiography of the abdominal aorta and its branches is performed with thin section helical technique with additional coronal and three-dimensional reconstructions. 100 cc Omnipaque 350 contrast were used. Comparison is made with a prior examination of 11/05/2014. Examination of the abdominal aorta reveals placement of an endograft within the abdominal aorta. This begins below the level of the renal arteries with graft limbs extending into the right and left common iliac artery. Graft is patent. No endoleak is identified at any level. Diameter of the abdominal aorta is unchanged. There is symmetric renal perfusion. There is redemonstration of plaque at the origin of the renal artery bilaterally. Superior mesenteric is patent. There is no retroperitoneal hemorrhage or fluid. No ascites or loculated peritoneal fluid collection. CT angiography of the pelvis reveals that the right and left common, internal and external iliac artery are patent. No severe stenosis is identified. Conclusion: Patent aortoiliac endograft as described. No endoleak identified. No change in diameter of the abdominal aortic aneurysm. Chuck Anderson MD CT ORDERABLES * (ABNORMAL) CREATININE BLOOD - POINT OF CARE (IP) (02/17/2015 9:19 AM CDT) Only the most recent of2 resultswithin the time period is included. Creatinine POCT 0.69(A) 0.7 - 1.2 mg/dL [facility] POCT TEST[facility] QC Verified Yes Yes [facility] POC T TESTING Blood specimen (specimen) BLOOD SPECIMEN / Unknown 02/17/2015 9:19 AM CDT Chuck Anderson MD LAB - POINT OF CARE ORDERABLES [facility] POCT TESTING [address] [phone] * APHERESIS/TRANSFUSION ORDER (12/11/2014 9:46 PM CDT) Narrative 12/11/2014 9:46 PM CDT Ordered by an unspecified provider. Scanned Document NURSING - VITAL SIGN S AND ASSESSMENT * FL REPAIR INFRARENAL AAA ENDO (12/09/2014 9:05 AM CDT) Anatomical Region Laterality Modality Radiographic Taina ging 12/09/2014 9:23 AM CDT Narrative 12/09/2014 9:23 AM CDT FLUOROSCOPY: Less than 1 hour ??of fluoroscopy was utilized during a abdominal aortic aneurysm repair. No radiologist was present. 12.11 minutes fluoroscopy were provided. Procedure Note Francia Lopez MD - 12/09/2014 FLUOROSCOPY: Less than 1 hour of fluoroscopy was utilized during a abdominal aortic aneurysm repair. No radiologist was present. 12.11 minutes fluoroscopy were provided. Chuck Anderson MD FLUOROSCOPY ORDERABL ES * BLOOD TYPE VERIFICATION (12/09/2014 6:37 AM CDT) ABO A 12/09/2014 7:42 AM CDT [facility] Rh Type Positive 12/09/2014 7:42 AM CDT [facility] Miscellaneous samples (specimen) BLOOD SPECIMEN / Unknown 12/09/2014 6:37 AM CDT 12/09/2014 6:55 AM CDT Chuck Anderson MD LAB - BLOOD BANK ORD ERABLES Performing Organization Address [facility] Co de Phone Number [facility] [address] [place] [address] * CROSSMATCH RBC (12/09/2014 6:16 AM CDT) Only the most recent of2 resultswithin the time period is included. Unit Donor # [id number] 12/10/2014 12:41 PM CDT [facility] Product Code E0336 12/10/2014 12:41 PM CDT [facility] Unit Description E0336 RBC, LR, CPD>AS1 12/10/2014 12:41 PM CDT [facility] ABO Donor Type A 12/10/2014 12:41 PM CDT [facility] Rh Type Unit POS 12/10/2014 12:41 PM CDT [facility] Unit Status Returned 12/10/2014 12:41 PM CDT [facility] Miscellaneous samples (specimen) BLOOD SPECIMEN / Unknown 12/09/2014 6:16 AM CDT 12/09/2014 7:49 AM CDT Chuck Anderson MD LAB - BLOOD BANK ORD ERABLES Performing Organization Address [facility] Co de Phone Number [facility] [id number] [place] [address] * TYPE + SCREEN PANEL (12/09/2014 6:16 AM CDT) ABO A 12/09/2014 7:43 AM CDT [facility] Rh Type Positive 12/09/2014 7:43 AM CDT [facility] Comment:History check perfor med. Retype required. Antibody Screen Negative 12/09/2014 7:43 AM CDT [facility] Miscellaneous samples (specimen) BLOOD SPECIMEN / Unknown 12/09/2014 6:16 AM CDT 12/09/2014 6:22 AM CDT Chuck Anderson MD LAB - BLOOD BANK ORD ERABLES Performing Organization Address [facility] Co de Phone Number [facility] [id number] [place] [address] * HGB HCT PANEL (12/09/2014 6:16 AM CDT) Hemoglobin 13.0 12.0 - 15.6 gm/dL 12/09/2014 6:28 AM CDT [facility] Hematocrit 37.6 35.9 - 45.5 % 12/09/2014 6:28 AM CDT [facility] Blood BLOOD SPECIMEN / Unknown 12/09/2014 6:16 AM CDT 12/09/2014 6:22 AM CDT Chuck Anderson MD LAB - HEMATOLOGY ORD ERABLES Performing Organization Address [facility] Co de Phone Number [facility] [phone] [place] [address] * IMAGING/RADIOLOGY/XRAY RESULTS ORDER (10/14/2014) Anatomical Region Laterality Modality Other Chuck Anderson MD IMAGING * CARDIAC EKG ORDER (02/11/2010 3:39 PM CDT) Only the most recent of2 resultswithin the time period is included. Narrative Procedure Note Document, Scanned - 02/10/2010 3:43 PM CDT Scanned Document CARDIAC SERVICES ORD ERABLES Care Teams Banana Ripening Room Supervisor Relationship Specialty Start Date End Date Urbano Gonzalez MD [address] [facility] [address] [place] [address] PCP - General Internal Medicine 04/25/16 Anya Whittaker RN Manufacturers Representative 12/09/14
--- OUTSIDE RECORDS SUMMARY | 2024-07-26 19:05 | XMS_ITS | Encounter Summary ---
Author Organization [facility] Address [address] [place] [address] Care Team Providers Care Organizational Effectiveness Consultant Name Role Phone Theodore Beck MD Primary Care Provider [phone] Anya Whittaker RN Unavailable [phone] Urbano Gonzalez MD Primary Care Provider Encounter Details Date Type Department Care Team (Late st Contact Info) Description 10/27/[address] [facility] Outpatient Visit EXTERNAL NON-[facility] [place] [id number] [address] Social History Tobacco Use Types Packs/Day Years Used Date Smoking Tobacco: Every Day Cigarettes 2 11 Smokeless Tobacco: Never Alcohol Use Standard Drinks/Week Comments No 0 (1 standard drink = 0.6 oz pur e alcohol) Sex and Gender Information Value Date Recorded Sex Assigned at Not on file Gender Identity Not on file Sexual Orientation Not on file documented as of this encounter Plan of Treatment Not on file documented as of this encounter Visit Diagnoses Not on filedocumented in this encounter Care Teams Organizational Effectiveness Consultant Relationship Specialty Start Date End Date Theodore Beck MD PCP - General Internal Medicine 10/27/14 04/24/16 [place] [address] [place], [place] [id number] PCP - General Internal Medicine 04/25/16 Anya Whittaker, RN Gynecology Teacher 12/09/14 documented as of this encounter
--- OUTSIDE RECORDS SUMMARY | 2024-07-26 19:05 | XMS_ITS | Clinical Summary ---
Author Organization [facility] [employer] Address [address] [place] [address] Care Team Providers Care Movie Machine Operator Name Role Phone Anya Whittaker RN Unavailable [phone] Urbano Gonzalez MD Primary Care Provider [phone] Source Comments [facility] [facility],non-owned Affiliates and Associated Physician Practices is amultiple site organization consisting of ambulatory clinics and hospital sitesin [place], [place], [place] and [place]. This disclosure is being madepursuant to the Care Everywhere program and may not contain all information available regarding this patient. Last updated 18.[facility] Allergies Active Allergy Reactions Criticality Noted Date Comments Aspirin 02/10/2010 Stomach upset Propoxyphene Nausea and/or Vomiting 02/10/2010 Epinephrine Seizures 11/10/2014 Used with lidocaine at dentist, had seizure from it per patient Morphine Nausea and/or Vomiting 11/10/2014 Owmklifi-Tklieyguvb-Xdp ymyxin Rash Low 02/10/2010 Propoxyphene N-Apap Nausea [...] aneurysm (AAA) without rupture 03/31/2016 Dizzy 02/10/2010 Family History Medical History Relation Name Comments Hodgkin's lymphoma Father Aneurysm Mother aaa Arthritis Mother Blood Clots Mother Cataract Mother Emphysema Mother Heart Disease Mother Tremor Mother Arthritis Sister 2 Blood Clots Sister 3 Hypertension Sister 4 Scoliosis Sister 5 Spine problems Sister 6 stenosis Relation Name Status Comments Father Mother Sister 1 Alive Sister 2 Sister 3 Sister 4 Sister 5 Sister 6 Social History Tobacco Use Types Packs/Day Years [...] Comments Blood Pressure 156/71 05/08/2019 12:54 PM INSTRUMENT DESIGNER Pulse 64 05/08/2019 12:54 PM INSTRUMENT DESIGNER Temperature 36.4 ??C (97.6 ??F) 05/08/2019 12:[address] Respiratory Rate 16 11/01/2018 10:16 AM CDT Oxygen Saturation 97% 05/08/2019 12:54 PM INSTRUMENT DESIGNER Inhaled Oxygen Concentration - - Weight 61.2 kg (135 lb) 05/08/2019 2:29 PM INSTRUMENT DESIGNER Height 170.2 cm (5' 7 ) 05/08/2019 2:29 PM INSTRUMENT DESIGNER Body Mass Index 21.14 05/08/2019 2:29 PM INSTRUMENT DESIGNER Plan of Treatment Health Maintenance Due Date Last Done Comments BONE DENSITY TESTING 1940 MEDICARE AWV ? 12 MONTHS 1940 DTAP/TDAP/TD VACCINES (1 - Tdap) 1960 PNEUMOCOCCAL VACCINE 50+ (1 of 1 - PCV) 1991 ZOSTER VACCINE (1 of 2) 1991 Respiratory Syncytial Virus (RSV) Vaccine Pt: or over 60 yrs (1 - 1-dose 75+ series) 2016 COVID-19 VACCINE (1 - season) 2024 INFLUENZA VACCINE (#1) 2024 9, 06/05/2018, 05/02/2017, Additional history exists DEPRESSION SCREENING 06/25/2024 HEPATITIS B VACCINE Aged Out No longe r eligible based on patient's age to complete this topic HIB VACCINE Aged Out No longer eligi ble based on patient's age to complete this topic HPV VACCINE Aged Out No longer eligi ble based on patient's age to complete this topic MENINGOCOCCAL (Group B) VACCINE Aged Out No longer eligible based on patient's age to complete this topic MENINGOCOCCAL VACCINE Aged Out No miles tequila eligible based on patient's age to complete this topic Medical Devices Implanted Type Area Wagon Person Device Identifier Shelf Expiration Date Model / Serial / Lot Excluder C3 28mm X 12.0mm X 16cm - [id number] Implanted:Qty: 1 on 12/09/2014 by Chuck Anderson MD at [facility] Left: Groin [employer] 07/25/2017 [id number] / [id number] / Grsundar Excluder Contra 12mm X 120mm Implanted:Qty: 1 on 12/09/2014 by Chuck Anderson MD at [facility] Left: Groin [employer] [id number] / / Advance Directives * Full Code (Latest Code Status on File) Date Activated Date Inactivated Comments 12/09/2014 2:47 PM 12/10/2014 11:40 AM Care Teams Movie Machine Operator Relationship Specialty Start Date End Date Urbano Gonzalez MD [address] [address] PCP - General Internal Medicine 04/25/16 Anya Whittaker, RN Mash Filter Cloth Changer 12/09/14
[2024-07-26 19:09] VITALS: BP 140/67; PULSE 91; RESP 14; TEMP 36.7; O2SAT 97
[2024-07-26 19:12] VITALS: BP 140/67; PULSE 91; RESP 14; TEMP 36.7; O2SAT 97
--- NOTE | 2024-07-26 20:15 | ED_ITS ---
HPI - Extremity Injury (Lower) General Chief Complaint: Extremity Injury, Lower Stated Complaint: fall, hip pain Time Seen by Provider: 07/26/24 20:08 Source: patient Mode of arrival: EMS Limitations: no limitations History of Present Illness HPI Narrative: This is a 83-year-old female that presents to the emergency department after a fall today. Reports she fell onto her left hip. Reports history of surgery on this hip. She is having pain and has been unable to ambulate. Denies any other injuries/focal areas of pain. Related Data Allergies Allergy/AdvReac Type Severity Reaction Status Date / Time Aminoglycosides Allergy Mild Rash Unverified 07/15/19 13:17 bacitracin Allergy Mild Rash Unverified 07/15/19 13:17 lidocaine Allergy Mild MAKES Unverified 07/15/19 13:17 HEART RACE neomycin Allergy Mild Rash Unverified 07/15/19 13:17 propoxyphene Allergy Mild STOMACH Unverified 07/15/19 13:17 UPSET acetaminophen Allergy Unknown Unknown Verified 07/15/19 13:17 cyclobenzaprine Allergy Unknown Unknown Verified 07/15/19 13:17 epinephrine Allergy Unknown Unknown Verified 07/15/19 13:17 tramadol Allergy Unknown Unknown Verified 07/15/19 13:17 POLYMYXINBSULF Allergy Mild Rash Uncoded 07/15/19 13:17 Review of Systems Review of Systems: CONSTITUTIONAL: Denies fever GASTROINTESTINAL: Denies vomiting MUSCULOSKELETAL: Reports joint pain, and myalgia. NEUROLOGIC: Denies numbness, or weakness. All systems reviewed & are unremarkable except as noted in HPI and below PMFSH Past Medical History Medical History (Updated 07/27/24 @ 01:00 by Tameka Young PA-C) History of hyperlipidemia History of hypertension Social History Social History (Updated 07/26/24 @ 20:17 by Tameka Young PA-C) Substance use: never Exam Narrative: GENERAL: Elderly, well-nourished, and in no acute distress. HEAD: Normocephalic, atraumatic. EYES: PERRLA and EOMI. ENT: Nares clear, no rhinorrhea or epistaxis. Mucous membranes moist. Oropharynx without tonsillar hypertrophy exudate or other lesions. Bilateral TMs pearly ralph non-bulging NECK: Supple. No adenopathy or masses. No midline spinal tenderness CHEST: Clear to auscultation. No respiratory distress. No wheezes rales or rhonchi HEART: Regular rate and rhythm. No murmur heard. Normal peripheral pulses. EXTREMITIES: Normal range of motion, except decreased active ROM in the left hip due to pain. No edema. Normal DP pulses SKIN: Warm, dry, no rash. NEURO: No focal deficits. Alert and oriented x3. Cranial nerves 2-12 grossly intact PSYCH: Normal mood and affect Course Course Emergency Course: Patient updated on her workup and agrees with plan of care Vital Signs Vital signs: Vital Signs Temperature 98.0 F 07/26/24 19:09 Pulse Rate 91 07/26/24 19:09 Respiratory Rate 14 07/26/24 19:09 Blood Pressure 140/67 07/26/24 19:09 Pulse Oximetry 97 07/26/24 19:09 Oxygen Delivery Room Air 07/26/24 19:09 Temperature 98.0 F 07/26/24 19:12 Pulse Rate 91 07/26/24 19:12 Respiratory Rate 14 07/26/24 19:12 Blood Pressure 140/67 07/26/24 19:12 Pulse Oximetry 97 07/26/24 19:12 Oxygen Delivery Room Air 07/26/24 19:09 MDM - Extremity Injury (Lower) MDM Narrative Medical decision making narrative: Patient presents the emergency department after a fall today at home. No prodromal symptoms. She is afebrile and nontoxic appearing. Her vitals are stable. She is neurologically intact. CT brain without acute findings. Chest x-ray without acute cardiopulmonary abnormality. Left hip/pelvic x-ray without acute findings. CT pelvis also does not show any fractures. Patient updated on her workup and agrees with plan of care. She is to follow up with primary provider. She was given warnings to return to the ER Differential Diagnosis Differential diagnosis: Likely other (Hip fracture, hip sprain, contusion) Imaging Data Radiologist's impression: ITS Impressions Head CT 07/26/24 21:05 IMPRESSION: No acute intracranial process. Chest X-Ray 07/26/24 21:12 IMPRESSION: No acute cardiopulmonary process. Hip/Pelvis X-Ray 07/26/24 21:13 IMPRESSION: No acute osseous finding in the pelvis or left hip. No radiographic evidence of hardware related complication. CT pelvis: No acute fracture. Critical Care Time Critical Care Time Critical Care Time: No Discharge Plan Discharge Clinical Impression: Contusion of left hip Patient Disposition: Home, Self-Care Condition: Stable Instructions: Hip Pain (ED) Additional Instructions: Return to the ER if you experience weakness, numbness, bowel/bladder incontinence, or any other symptoms that are concerning to you Rest, use ice/heat, take anti-inflammatories (Aleve, Ibuprofen, Naproxen, etc) or Tylenol as needed for pain Follow up with your primary care doctor Patient Language: Romansh Follow-up/Referrals: Carlos,Urbano Mckeon MD [Primary Care Provider] -
--- OUTSIDE RECORDS SUMMARY | 2024-07-26 20:41 | XMS_ITS | Patient Health Summary ---
Author Organization [facility] [employer] Address [address] [place] [address] Care Team Providers Care Per Diem Nurse Name Role Phone Anya Whittaker RN Unavailable [phone] Urbano Gonzalez MD Primary Care Provider + [phone] Note from [facility],non-owned Affiliates and Associated Physician Practices is amultiple site organization consisting of ambulatory clinics and hospital sitesin [place], [place], [place] and [place]. This disclosure is being madepursuant to the Care Everywhere program and may not contain all information available regarding this patient. Last updated 18.[facility] [employer] Allergies * Aspirin(Stomach upset) * Propoxyphene(Nausea and/or Vomiting) * Epinephrine(Seizures) * Morphine(Nausea and/or Vomiting) * Xehvxqia-Ehciysglqq-Nitbxcvvk(Rash) -Low Criticality * Propoxyphene N-Apap(Nausea and/or Vomiting) [...] Comments Blood Pressure 156/71 05/08/2019 12:54 PM SIDE STITCHING MACHINE OPERATOR Pulse 64 05/08/2019 12:54 PM SIDE STITCHING MACHINE OPERATOR Temperature 36.4 ??C (97.6 ??F) 05/08/2019 12:[address] Respiratory Rate 16 11/01/2018 10:16 AM CDT Oxygen Saturation 97% 05/08/2019 12:54 PM SIDE STITCHING MACHINE OPERATOR Inhaled Oxygen Concentration - - Weight 61.2 kg (135 lb) 05/08/2019 2:29 PM SIDE STITCHING MACHINE OPERATOR Height 170.2 cm (5' 7 ) 05/08/2019 2:29 PM SIDE STITCHING MACHINE OPERATOR Body Mass Index 21.14 05/08/2019 2:29 PM SIDE STITCHING MACHINE OPERATOR Medical Devices Implanted Type Area Ready To Wear Department Manager Device Identifier Shelf Expiration Date Model / Serial / Lot Excluder C3 28mm X 12.0mm X 16cm - [id number] Implanted:Qty: 1 on 12/09/2014 by Chuck Anderson MD at [facility] Left: Groin [employer] 07/25/2017 [id number] / [id number] / Grft Excluder Contra 12mm X 120mm Implanted:Qty: 1 on 12/09/2014 by Chuck Anderson MD at [facility] Left: Groin [employer] [id number] / / Procedures * PACEMAKER CLINIC CHECK(Performed [...] 01/02/2018) Performed for SSS (sick sinus syndrome) (FORMERLY [facility]) * EP LAB CONSULT(Performed 01/01/2018) * XR CHEST 1VW(Performed 01/01/2018) Performed for SSS (sick sinus syndrome) (FORMERLY [facility]) * PT-INR(Performed 12/28/2017) Performed for Sick sinus [...] DOPPLER AO IVC ILIAC (05/08/2019 2:05 PM SIDE STITCHING MACHINE OPERATOR) Only the most recent of4 resultswithin the time period is included. Anatomical Region Laterality Modality Ultrasound 05/08/2019 1:47 PM SIDE STITCHING MACHINE OPERATOR Narrative Procedure Note Chuck Anderson MD - 05/08/2019 [facility] [place] [address], [address] [place] [address] Abdominal Aorto-Iliac Report Pat.Name: FRANCIA MCKOY Pat.ID: [id number] .Date: 05/08/2019 Exam Time: 1:47:00 PM Study Type:Abd. Aorta-Iliac Age: 2 1940,78Y Sex: FEMALE Sonogrphr: José Luis Stanley RVT Pat. Stat.:Outpatient ICD - 9: I71.9 Aortic aneurysm of unspecified site CPT - 4: 06604 Procedures: Aortic Artery Duplex - Limited Race: 2 Visit ID: [id number] ++++++++++++++++++++++++++++++++++++ SUMMARY: ++++++++++++++++++++++++++++++++++++ Patent abdominal aortic endoluminal [...] osseous structures are unremarkable. Procedure Note Amelia Faith MD - 01/02/2018 PA AND LATERAL CHEST [...] EP Lab Consult (01/01/2018 6:24 PM CDT) [facility] CARDIAC SERVICES - 01/01/2018 6:24 PM CDT Benjamín Reyes MD ? 01/01/2018 ??6:24 PM ??Pacemaker Implantation Report ??01/01/2018 ??Referring Physician: ?Willa Henry MD, [facility] ??Powerhouse Mechanic Supervisor: ?Benjamín Reyes MD ??Procedure Performed: ?Implantation of a Medtronic dual chamber pacemaker (90545). ??History of Present Illness: ?Francia Mckoy??is a very friendly 77 y.o.??current smoker with sinus node dysfunction, prior TIA (2005), endovascular AAA repair (2014), lumbar fusion (L3-5, 2007), hypertension, dyslipidemia. ?? For the past four months, Ms. Mckoy has experienced worsening fatigue and exertional dyspnea. ??She denies experiencing angina or chest pain. ??In August, a 30 day nuclear monitoring technician demonstrated multiple episodes of sinus bradycardia with [...] with the use of fluoroscopic guidance, a 99inn.cctronic low voltage lead was advanced to the right ventricular apical septum. ??Septal placement of the lead was verified in the 30 degree VI[place] projection. ??Once an adequate site was obtained, [...] interfaced with a [id number] generator (serial number [id number]). ?? The pulse generator and excess leads were placed into the pocket. ??The generator was secured to the pectoralis muscle using one 0-Ethibond tie. ??The pocket was closed in three layers with 2-0, 3-0, and 4-0 Vicryl. ??[place]-lindsay was applied to the incision. ?? The patient tolerated the procedure well. ??There were no complications. ??Device and Lead Information: ?The RV lead is a 5076/58 cm active fixation lead (serial number [id number]). ??R waves were measured at 9 mV and the impedance was 1045 ohms through the device. ??The capture threshold was 0.9 V at 0.5 ms. ??The RA lead is a 5076/52 cm active fixation lead (serial number [id number]). ??P waves were measured at 3 mV [...] for a wound check at the the [facility] office ([phone]) within ten days. ??The attending physician was [...] AM CDT 12/28/2017 Narrative Resulting Agency Comment [facility] [address] [address] ??Jose DE OLIVEIRA [phone] Benjamín Reyes MD LAB - COAGULATION ORDERABLES [facility] INSURANCE BILL [address] [place] [address] * (ABNORMAL) CBC W AUTO DIFFERENTIAL (12/28/2017 [...] AM CDT 12/28/2017 Narrative Resulting Agency Comment [facility] [address] ??Jose DE OLIVEIRA [phone] Benjamín Reyes MD LAB - HEMATOLOGY ORDERABLES [facility] INSURANCE BILL [address] [place] [address] * (ABNORMAL) BASIC METABOLIC PANEL (CALCIUM TOTAL) [...] AM CDT 12/28/2017 Narrative Resulting Agency Comment [facility] [address] [address] ??Jose DE OLIVEIRA [phone] Benjamín Reyes MD LAB - CHEMISTRY O RDERABLES [facility] INSURANCE BILL [address] [place] [address] * NM MYOCARD PERF REST STRESS (12/11/2017 [...] TEST LEXISCAN (NUCLEAR) (12/11/2017 10:11 AM CDT) [facility] Stress Test Summary For full formatted report, [...] REYES ? Overread By: GUILLERMO SAM MD [facility] STRESS 12/11/2017 10:1 1 AM CDT 12/11/2017 3:18 PM CDT Benjamín Reyes MD CARDIAC SERVICES ORDERABLES Performing Organization Address [facility] de Phone Number [facility] STRESS * EKG 12-LEAD (12/07/2017) Only the most recent of2 resultswithin the time period is included. Narrative [facility] RESULT SCAN - 12/07/2017 ekg done in office. Benjamín Reyes MD ECG ORDERABLES Performing Organization Address [facility] Co de Phone Number [facility] RESULT SCAN * ECHOCARDIOGRAM 2D WITH DOPPLER (11/23/2017) Richi Sparks MD ECHO ORDERABLES * DUPLEX CAROTID BILAT (09/14/2017) Richi Sparks MD [facility] STORAGE ADMINISTRATOR * RHYTHM STRIP (09/09/2017) Provider Unknown CARDIAC [...] POINT OF CARE ORDERABLES [facility] POCT TESTING [address] [phone] * APHERESIS/TRANSFUSION ORDER (12/11/2014 9:46 PM CDT) [...] CDT) ABO A 12/09/2014 7:42 AM CDT [facility] Rh Type Positive 12/09/2014 7:42 AM CDT [facility] Miscellaneous samples (specimen) BLOOD SPECIMEN / Unknown 12/09/2014 6:37 AM CDT 12/09/2014 6:55 AM CDT Chuck Anderson MD LAB - BLOOD BANK ORD ERABLES Performing Organization Address [facility] Co de Phone Number [facility] [address] [place] [address] * CROSSMATCH RBC (12/09/2014 6:16 AM CDT) Only the most recent of2 resultswithin the time period is included. Unit Donor # [id number] 12/10/2014 12:41 PM CDT [facility] Product Code E0336 12/10/2014 12:41 PM CDT [facility] Unit Description E0336 RBC, LR, CPD>AS1 12/10/2014 12:41 PM CDT [facility] ABO Donor Type A 12/10/2014 12:41 PM CDT [facility] Rh Type Unit POS 12/10/2014 12:41 PM CDT [facility] Unit Status Returned 12/10/2014 12:41 PM CDT [facility] Miscellaneous samples (specimen) BLOOD SPECIMEN / Unknown 12/09/2014 6:16 AM CDT 12/09/2014 7:49 AM CDT Chuck Anderson MD LAB - BLOOD BANK ORD ERABLES Performing Organization Address [facility] Co de Phone Number [facility] [id number] [place] [address] * TYPE + SCREEN PANEL (12/09/2014 6:16 AM CDT) ABO A 12/09/2014 7:43 AM CDT [facility] Rh Type Positive 12/09/2014 7:43 AM CDT [facility] Comment:History check perfor med. Retype required. Antibody Screen Negative 12/09/2014 7:43 AM CDT [facility] Miscellaneous samples (specimen) BLOOD SPECIMEN / Unknown 12/09/2014 6:16 AM CDT 12/09/2014 6:22 AM CDT Chuck Anderson MD LAB - BLOOD BANK ORD ERABLES Performing Organization Address [facility] Co de Phone Number [facility] [id number] [place] [address] * HGB HCT PANEL (12/09/2014 6:16 AM CDT) Hemoglobin 13.0 12.0 - 15.6 gm/dL 12/09/2014 6:28 AM CDT [facility] Hematocrit 37.6 35.9 - 45.5 % 12/09/2014 6:28 AM CDT [facility] Blood BLOOD SPECIMEN / Unknown 12/09/2014 6:16 AM CDT 12/09/2014 6:22 AM CDT Chuck Anderson MD LAB - HEMATOLOGY ORD ERABLES Performing Organization Address City/[facility] Co de Phone Number [facility] [id number] [place] [address] * IMAGING/RADIOLOGY/XRAY RESULTS ORDER (10/14/2014) Anatomical Region Laterality Modality Other Chuck Anderson MD IMAGING * CARDIAC EKG ORDER (02/11/2010 3:39 PM CDT) Only the most recent of2 resultswithin the time period is included. Narrative Procedure Note Document, Scanned - 02/10/2010 3:43 PM CDT Scanned Document CARDIAC SERVICES ORD ERABLES Care Teams Per Diem Nurse Relationship Specialty Start Date End Date Urbano Gonzalez MD [address] [facility] [address] [place] [address] PCP - General Internal Medicine 04/25/16 Anya Whittaker RN Director Of Services 12/09/14
--- OUTSIDE RECORDS SUMMARY | 2024-07-26 20:41 | XMS_ITS | Clinical Summary ---
Author Organization [facility] Address [address] [place] [address] Care Team Providers Care Shoe Stitcher Name Role Phone Anya Whittaker RN Unavailable [phone] Urbano Gonzalez MD Primary Care Provider + [phone] Source Comments [facility],non-owned Affiliates and Associated Physician Practices is amultiple site organization consisting of ambulatory clinics and hospital sitesin [place], [place], [place] and [place]. This disclosure is being madepursuant to the Care Everywhere program and may not contain all information available regarding this patient. Last updated 18.[facility] Allergies Active Allergy Reactions Criticality Noted Date Comments Aspirin 02/10/2010 Stomach upset Propoxyphene Nausea and/or Vomiting 02/10/2010 Epinephrine Seizures 11/10/2014 Used with lidocaine at dentist, had seizure from it per patient Morphine Nausea and/or Vomiting 11/10/2014 Webfgogi-Wtzrknvfct-Ppj ymyxin Rash Low 02/10/2010 Propoxyphene N-Apap Nausea [...] Comments Blood Pressure 156/71 05/08/2019 12:54 PM ROBOTIC WELDER Pulse 64 05/08/2019 12:54 PM ROBOTIC WELDER Temperature 36.4 ??C (97.6 ??F) 05/08/2019 12:[address] Respiratory Rate 16 11/01/2018 10:16 AM CDT Oxygen Saturation 97% 05/08/2019 12:54 PM ROBOTIC WELDER Inhaled Oxygen Concentration - - Weight 61.2 kg (135 lb) 05/08/2019 2:29 PM ROBOTIC WELDER Height 170.2 cm (5' 7 ) 05/08/2019 2:29 PM ROBOTIC WELDER Body Mass Index 21.14 05/08/2019 2:29 PM ROBOTIC WELDER Plan of Treatment Health Maintenance Due Date [...] this topic Medical Devices Implanted Type Area Long Term Care Pharmacist Device Identifier Shelf Expiration Date Model / Serial / Lot Excluder C3 28mm X 12.0mm X 16cm - [id number] Implanted:Qty: 1 on 12/09/2014 by Chuck Anderson MD at [facility] Left: Groin [employer] [place] [employer] 07/25/2017 [id number] / [id number] / Grsundar Excluder Contra 12mm X 120mm Implanted:Qty: 1 on 12/09/2014 by Chuck Anderson MD at [facility] Left: Groin [employer] [employer] [id number] / / Advance Directives * Full Code (Latest Code Status on File) Date Activated Date Inactivated Comments 12/09/2014 2:47 PM 12/10/2014 11:40 AM Care Teams Shoe Stitcher Relationship Specialty Start Date End Date Urbano Gonzalez MD [address] [address] PCP - General Internal Medicine 04/25/16 Anya Whittaker, RN Dye Worker 12/09/14
--- OUTSIDE RECORDS SUMMARY | 2024-07-26 20:41 | XMS_ITS | Referral Summary ---
Author Organization [facility] [employer] Address [address] [place] [address] Care Team Providers Care Band Tacker Name Role Phone Anya Whittaker RN Unavailable [phone] Urbano Gonzalez MD Primary Care Provider [phone] Source Comments [facility],non-owned Affiliates and Associated Physician Practices is amultiple site organization consisting of ambulatory clinics and hospital sitesin [place], [place], [place] and [place]. This disclosure is being madepursuant to the Care Everywhere program and may not contain all information available regarding this patient. Last updated 18.[facility] [employer] Allergies Active Allergy Reactions Criticality Noted Date Comments Aspirin 02/10/2010 Stomach upset Propoxyphene Nausea and/or Vomiting 02/10/2010 Epinephrine Seizures 11/10/2014 Used with lidocaine at dentist, had seizure from it per patient Morphine Nausea and/or Vomiting 11/10/2014 Fxqquuqq-Mwkktxbhvs-Dpq ymyxin Rash Low 02/10/2010 Propoxyphene N-Apap Nausea [...] Comments Blood Pressure 156/71 05/08/2019 12:54 PM AUTOMOBILE ASSEMBLY SUPERVISOR Pulse 64 05/08/2019 12:54 PM AUTOMOBILE ASSEMBLY SUPERVISOR Temperature 36.4 ??C (97.6 ??F) 05/08/2019 12:[address] Respiratory Rate 16 11/01/2018 10:16 AM CDT Oxygen Saturation 97% 05/08/2019 12:54 PM AUTOMOBILE ASSEMBLY SUPERVISOR Inhaled Oxygen Concentration - - Weight 61.2 kg (135 lb) 05/08/2019 2:29 PM AUTOMOBILE ASSEMBLY SUPERVISOR Height 170.2 cm (5' 7 ) 05/08/2019 2:29 PM AUTOMOBILE ASSEMBLY SUPERVISOR Body Mass Index 21.14 05/08/2019 2:29 PM AUTOMOBILE ASSEMBLY SUPERVISOR Functional Status Functional Status Response Date of [...] on file Medical Devices Implanted Type Area Mail Clerk Device Identifier Shelf Expiration Date Model / Serial / Lot Excluder C3 28mm X 12.0mm X 16cm - [id number] Implanted:Qty: 1 on 12/09/2014 by Chuck Anderson MD at [facility] Left: Groin [employer] 07/25/2017 [id number] / [id number] / Grft Excluder Contra 12mm X 120mm Implanted:Qty: 1 on 12/09/2014 by Chuck Anderson MD at [facility] Left: Cloud Cruiser [employer] [id number] / / Advance Directives * Full Code (Latest Code Status on File) Date Activated Date Inactivated Comments 12/09/2014 2:47 PM 12/10/2014 11:40 AM Care Teams Band Tacker Relationship Specialty Start Date End Date Urbano Gonzalez MD [address] [place] [address] PCP - General Internal Medicine 04/25/16 Anya Whittaker, RN Bow Maker 12/09/14
--- OUTSIDE RECORDS SUMMARY | 2024-07-26 20:41 | XMS_ITS | CONTINUITY OF CARE DOCUMENT ---
Author Name agnes alarcon Address Unknown Organization [facility] Address [address] [place] [address] Phone [phone] Care Team Providers Care College Professor Name Role Phone Richi Sparks MD Unavailable Urbano Gonzalez MD Unavailable [phone] Urbano Gonzalez MD Unavailable PROBLEMS Condition Status Date Provider Notes Bradycardia active Richi Sparks MD Hypertension active Richi Sparks MD Carotid bruit active Richi Sparks MD Tobacco abuse active Osmar Samuel ENCOUNTERS Date Type Provider Location Encounter Diag nosis 5 - 5 In-person encounter Office Visit Richi Sparks MD [place] [facility] Tobacco abuse 3 - 3 In-person encounter Office Visit Richi Sparks MD [place] [facility] 6 - 3 In-person encounter Office Visit Richi Sparks MD [place] [facility] BradycardiaHypertensionCarotid bruit VITAL SIGNS Date Observation Value Provider Body Mass Index (Ratio) 19.61 kg/m2 Will christian Samuel pulse rate 72 /min Xu ritchie oxygen saturation, oximetry 99 % Xu Eckert blood pressure, diastolic 64 mm[Hg] Noel Eckert blood pressure, systolic 124 mm[Hg] Mary Eckert respiratory rate E&M 16 /min Xu Eckert weight E&M 129 [lb_av] Xu ritchie height E&M 68 [in_i] [facility] Body Mass Index (Ratio) 19.70 kg/m2 Lola [...] Payer name Policy type / Coverage type [place] red republican ID [facility] [id number] [place] MEDICARE PART B Medicare [id number] [facility] Medicaid 2 [id number] ADVANCE DIRECTIVES Name Date DISCUSSED - NO [...] LIC PANEL W/EGFR Complete Echo DLCO - 82405 FRC - 17805 FVC - [address] [facility] Cardiac Tele Carotid Duplex Bilat eral HISTORY OF PROCEDURES Procedure Date Procedure Name Provider Procedure Notes S tatus Counseling LDCT Richi Sparks MD completed EKG Richi Sparks MD comp leted EKG Richi Sparks MD comp leted Event Monitor Richi Sparks MD c ompleted EKG Richi Sparks MD comp leted
--- OUTSIDE RECORDS SUMMARY | 2024-07-26 20:41 | XMS_ITS | Encounter Summary ---
Author Organization [facility] Address [address] [place] [address] Care Team Providers Care Control System Manager Name Role Phone Theodore Beck MD Primary Care Provider [phone] Anya Whittaker RN Unavailable [phone] Urbano Gonzalez MD Primary Care Provider Encounter Details Date Type Department Care Team (Late st Contact Info) Description 10/27/2014 [facility] Outpatient Visit EXTERNAL NON-[facility] [place] [address] [address] Social History Tobacco Use Types [...] on filedocumented in this encounter Care Teams Control System Manager Relationship Specialty Start Date End Date Theodore Beck MD PCP - General Internal Medicine 10/27/14 04/24/16 [place] [address] [place], [place] [id number] PCP - General Internal Medicine 04/25/16 Anya Whittaker, RN Leather Sorter 12/09/14 documented as of this encounter
--- OUTSIDE RECORDS SUMMARY | 2024-07-26 20:41 | XMS_ITS | Continuity of Care Document ---
Author Organization [facility] Address [address] [place] [address] Phone Care Team Providers Care Child Psychology Teacher Name Role Phone Faisal Koch Unavailable Unavailable Procedures Procedure Date Post-op Follow-up Visit BF Plastic Sphcyl Normangee To +/-4d .12-2d Vision Svcs Frames Purchases Frames Deluxe Scratch Resistant Coating Post-op Follow-up Visit Remove Cataract, Insert Lens PreOp Assessment Performed Eye Exam, New Patient Echo Exam Of Eye Advance Directives Directive Yes / No Effective Date File Name No Information Encounters Encounter Description Practice Location Reason(s) For Visit Diagnoses Date Provider Providers Copied on Encounter [facility], [address] [place] [address] [address], [place], [place], [id number], [place] tel:[phone] SEC Formerly named [facility] No Information Oct-2 2-201 0 Zee Malone. [facility] , [address], [place], [address], [place]. tel:[phone] [facility], [address] [place] [address] [address], [place], [place], [id number], [place] tel:[phone] SEC Formerly named [facility] No Information Oct-2 2-201 0 [facility] . [address], [address], [place], [place], [address], [place]. tel:[phone] Referring Provider: [facility] [address], [place], [place], [facility]. tel:[phone] [facility], [address] [place] [address] [address], [place], [place], [id number], tel:[phone] SEC [facility] No Information Oct-0 8-201 0 Zee Malone. [facility] [address], [address], [place], [place], [facility], [place]. tel:[phone] [facility], [address], [place], [place], [address], tel:[phone] [facility] No Information Oct-0 7-201 0 Zee Malone. [address] [place] [address] [address], [address], [place], [facility], . tel:[phone] [facility], [address] [place] [address] [address], [place], [place], [id number], tel:[phone] SEC [facility] No Information Sep-2 4-201 0 Zee Malone. [address] [place] [address] [address], [place], [facility], . tel:[phone] Referring Provider: Faisal Joiner, [facility] [address], [place], [facility]. tel:[phone] Family History Family Member Type Diagnosis Age At Onset No Information Payers Payer name Insurance type Covered libertarian ID Authoriza tion(s) No Information Social History [...]
[2024-07-26] MEDS: ONDANSETRON INJ 4 MG/2 ML VIAL IV PUSH (21:30)
[2024-07-26] MEDS: MORPHINE SULFATE (*CRX) 2 MG/ML INJ IV PUSH (21:31)
[2024-07-27 02:18] VITALS: BP 154/89; PULSE 101; RESP 18; TEMP 36.6; O2SAT 99
== END 2024-07-27 02:20 | disposition home or self-care (01) ==
PROVIDERS: Emergency Provider Physician Assistant; PCP Internal Medicine
DX: S70.02XA Contusion of left hip, initial encounter (principal); W19.XXXA Unspecified fall, initial encounter; I10 Essential (primary) hypertension; E78.5 Hyperlipidemia, unspecified
CPT/HCPCS: 70450; 71045; 72192; 73502; 96374; 96375; 99284; J2270; J2405

== ENCOUNTER 2025-06-17 19:12 | Emergency (ER) | payer OTHER, SELFPAY ==
--- NOTE | ~2025-06-17 | XR_ITS ---
XR chest 2V 06/17/2025 20:18 Indication: Shortness of breath Procedure: 2 view chest Comparison: 07/26/2024 Findings: No focal air space disease, pulmonary edema, pleural effusion or suspected pneumothorax. There is wedge compression fracture of a lower thoracic vertebra which appears chronic. Heart size normal. Pacemaker leads are stable. Impression: 1: No acute cardiopulmonary disease. Reviewed, dictated and finalized at location O. P TRUCK DRIVER Impression: 1: No acute cardiopulmonary disease.
--- OUTSIDE RECORDS SUMMARY | 2025-06-17 19:19 | XMS_ITS | Encounter Summary ---
Author Organization [facility] Health Address [address] [place] [address] Care Team Providers Care Brick Grader Name Role Phone Theodore Beck MD Primary Care Provider [phone] Anya Whittaker RN Unavailable [phone] Urbano Gonzalez MD Primary Care Provider [phone] Encounter Details Date Type Department Care Team (Late st Contact Info) Description 10/27/2014 [facility] Out[facility] [place] [id number] [address] Social History Tobacco Use Types Packs/Day Years Used Date Smoking Tobacco: Every Day Cigarettes 2 11 Smokeless Tobacco: Never Alcohol Use Standard Drinks/Week Comments No 0 (1 standard drink = 0.6 oz pur e alcohol) Comments No Sex and Gender Information Value Date Recorded Sex Assigned at Not on file Legal Sex Female 9:14 AM LOGISTICS PLANNER Gender Identity Not on file Sexual Orientation Not on file documented as of this encounter Plan of Treatment Not on file documented as of this encounter Visit Diagnoses Not on filedocumented in this encounter Care Teams Brick Grader Relationship Specialty Start Date End Date Theodore Beck MD PCP - General Internal Medicine 10/27/14 04/24/16 Urbano Gonzalez MD [address] [facility] [address] [place] [address] PCP - General Internal Medicine 04/25/16 Anya Whittaker, RN Medical Driver 12/09/14 documented as of this encounter
--- OUTSIDE RECORDS SUMMARY | 2025-06-17 19:19 | XMS_ITS | Encounter Summary ---
Author Organization [employer] [facility] Address [address] [place] [address] Care Team Providers Care Sales Clerk Name Role Phone Unavailable Primary Care Provider Unavailabl e Encounter Details Date Type Department Care Team (Late st Contact Info) Description 10/23/2007 Outpatient Historical [facility] Pain Management Procedures [address] [place] [address] Sergio Carlisle MD NO ADDRESS ON FILE Social History Tobacco Use Types Packs/Day Years Used Date Smoking Tobacco: Never Assessed Comments Unknown Sex and Gender Information Value Date Recorded Sex Assigned at Not on file Legal Sex Female 4:48 AM ICU TECH Gender Identity Not on file Sexual Orientation Not on file documented as of this encounter Plan of Treatment Not on file documented as of this encounter Visit Diagnoses Not on filedocumented in this encounter
--- OUTSIDE RECORDS SUMMARY | 2025-06-17 19:19 | XMS_ITS | Clinical Summary ---
Author Organization [facility] Address [address] 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
--- OUTSIDE RECORDS SUMMARY | 2025-06-17 19:19 | XMS_ITS | Patient Health Record ---
Author Organization [facility] Address [address] [facility] [address] [place] [address] Care Team Providers Care Clinical Massage Therapist Name Role Phone Tammi Kellogg Primary Care Provider Maritza Mcdonald Lester Hans Unavailable Allergies Allergen (clinical drug ingredient) Drug/Non Drug Allergy documented on EMR Reaction Allergy Type Onset Date Status EPINEPHrine Unknown Drug Allergy Activ e EPINEPHrine Base Unknown Drug Allergy Active EPINEPHrine HCl Unknown Drug Allergy A ctive Neosporin Unknown Drug Allergy Active Reason For Referral No Information Medications Medication SIG (Take, Route, Frequency, Duration) Notes Start Date End Date Status Aspirin 81 MG Tablet Delayed Release 1 tablet Orally Once a day; Duration: 30 day(s) Active traMADol HCl 50 MG Tablet 1 tablet as ne eded Orally Once a day Active Famotidine 20 MG Tablet 1 tablet at bedt angela as needed Orally Once a day; Duration: 30 day(s) Active amLODIPine Besylate 10 MG Tablet 1 tablet Orally Once a day; Duration: 30 day(s) Active Gabapentin 600 MG Tablet 1 tablet Orally Once a day; Duration: 30 day(s) Active Sertraline HCl 100 MG Tablet 1 tablet Orally Once a day; Duration: 30 day(s) Active Simvastatin 20 MG Tablet 1 tablet in the evening Orally Once a day; Duration: 30 day(s) Active Social History Tobacco Use: Social History Observation Description Date Details (start date - stop date) Former Smoker NA - NA Social History Social History Social Info Question Answer Notes Alcohol Use Did you have a drink containing alcohol i n the past year? No Points 0 Interpretation Negative Smoking Are you a: former smoker How long has it been since you last smoked? 1-5 years Additional Details Category Social Info Options Details Social History Alcohol None Tobacco Use Former Use Illicit Drug Use Never Problems Problem Type SNOMED Code ICD Code Onset Dates Problem Status W/U Status Risk Notes Problem Esophageal dysphagia (77293879) Esophageal dysphagia (R13.10) Active confirmed Most like ly secondary to Schatzki's ring. She will be scheduled for EGD with esophageal dilation Problem Gastroesophageal reflux disease (182574177) Gastroesophageal reflux disease, unspecified whether esophagitis present (K21.9) Active confirmed good symptom control on famotidine Plan Of Treatment No Information Insurance Providers Payer Name Payer Address Payer Phone Subscriber Number Group Number Insured Name Patient Relationship to Insured Coverage Start Date Coverage End Date MEDICARE [address] [place] [address] [id number] RAVINDRA MCKOY Self - [facility] the [facility] [address] [place] [address] [phone] [id number] RAVINDRA MCKOY Self - patient is the insured 0 Medical (General) History Medical History History ICD Code Dyslipidemia Hypertension GERD PUD Surgical History Surgery Date(Month/Year) Pacemaker/Defibrillator Hernia repair Left hip replacement Knee surgery(both) Hospitalization History Reason Date(Month/Year) Pneumonia 06/2018 Fell
--- OUTSIDE RECORDS SUMMARY | 2025-06-17 19:19 | XMS_ITS | Patient Health Record ---
Author Organization [facility], Address [address] [place] [address] Care Team Providers Care Coffee Maker Servicer Name Role Phone Theodore Beck Primary Care Provider Sylvain Guzman [phone] Reason For Referral No Information Plan Of Treatment No Information Insurance Providers Payer Name Payer Address Payer Phone Subscriber Number Group Number Insured Name Patient Relationship to Insured Coverage Start Date Coverage End Date [place] [address] [address] [place] [address] [id number] Francia Vo Self - patient is the insured [facility] Secondary [address] [place] [address] [id number] Francia Vo Self - patient is the insured [place] [address] [place] [address] [id number] Francia Vo Self - patient is the insured
--- OUTSIDE RECORDS SUMMARY | 2025-06-17 19:19 | XMS_ITS | Patient Health Record ---
Author Organization [facility] Address [address] [facility] [address], [place] [address] Care Team Providers Care Outer Diameter Grinder Name Role Phone Dedra Killian Primary Care Provider [phone] Allergies Allergen (clinical drug ingredient) Drug/Non Drug Allergy documented on EMR Reaction Allergy Type Onset Date Status EPINEPHrine HCl Unknown Drug Allergy A ctive Neosporin Unknown Drug Allergy Active Reason For Referral No Information Medications Medication SIG (Take, Route, Frequency, Duration) Notes Start Date End Date Status Simvastatin 20 MG 1 tablet in the even ing Orally Once a day Active Aspirin 81 MG 2 tablets Orally Onc e a day Active traMADol HCl 50 MG 1 tablet as needed O rally every 6 hrs Active Sertraline HCl 100 MG 1 tablet Orally Once a day Active Famotidine 20 MG 1 tablet at bedtime as needed Orally Twice a day Active Gabapentin 600 MG 1 tablet Orally Twic e a day Active amLODIPine Besylate 10 MG 1 tablet Orally Once a day Active Social History Tobacco Use: Social History Observation Description Date Details (start date - stop date) Former Smoker NA - NA Tobacco Use/Smoking Question Answer Notes Are you a former smoker Alcohol Screen Question Answer Notes Did you have a drink containing alcohol in the p ast year? No Points 0 Interpretation Negative Tobacco use other than smoking: Question Answer Notes Are you an other tobacco user? 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 confirmed Problem Lumbosacral spondylosis without myelopathy (02688171) Other spondylosis, lumbosacral region (M47.897) Active confirmed Problem Muscle weakness (48098065) Muscle weakness (generalized) (M62.81) Active confirmed Plan Of Treatment No Information Insurance Providers Payer Name Payer Address Payer Phone Subscriber Number Group Number Insured Name Patient Relationship to Insured Coverage Start Date Coverage End Date MEDICARE [employer] [address] [address] [place] [phone] [id number] Francia Vo Self - patient is the insured [facility] [address] [place] [address] XX Francia Vo Self - patient is the insured 0 Medical (General) History Medical History History ICD Code Arthritis Gastroesophageal Reflux Disease Stroke Sick Sinus Syndrome Lumbosacral Spondylosis Dyslipidemia Hypertension Transient Ischemic Attack Depression Surgical History Surgery Date(Month/Year) Abdominal Aortic Aneurysm repair 2015 Lumbar Spine Fusion Bunionectomy Cardiac Pacemaker Placement Mastoidectomy Cataract Extraction Facial Cosmetic Surgery Hysterectomy Bilateral total knee replacement Left total hip athroplasty with revision 2019 Hospitalization History Reason Date(Month/Year) Left Hip Arthritis 2019 Fall/Left Hip pain, UTI 01/2020
--- OUTSIDE RECORDS SUMMARY | 2025-06-17 19:19 | XMS_ITS | Clinical Summary ---
Author Organization [facility] Address [address] [place] [address] Care Team Providers Care Warehouse Packer Name Role Phone Anya Whittaker RN Unavailable [phone] Urbano Gonzalez MD Primary Care Provider [phone] Source Comments [facility],non-owned Affiliates and Associated Physician Practices is amultiple site organization consisting of ambulatory clinics and hospital sitesin [place], [place], [place] and [place]. This disclosure is being madepursuant to the Care Everywhere program and may not contain all information available regarding this patient. Last updated 18.[facility] Allergies Active Allergy Reactions Criticality Noted Date Comments Aspirin 02/10/2010 Stomach upset Propoxyphene Nausea and/or Vomiting 02/10/2010 Epinephrine Seizures 11/10/2014 Used with lidocaine at dentist, had seizure from it per patient Morphine Nausea and/or Vomiting 11/10/2014 Hnknnjuq-Wnvikrlnnr-Hyh ymyxin Rash Low 02/10/2010 Propoxyphene N-Apap Nausea and/or Vomiting 02/10/2010 Tramadol Nausea and/or Vomiting 11/10/2014 Medications * Be aware that medications may not be up to date on this document. Alwaysverify current medications with the patient. omeprazole (PRILOSEC) 20 MG capsule Take 20 [...] daily Active sertraline (ZOLOFT) 100 MG tablet 7 Active lisinopril (PRINIVIL; ZESTRIL) 40 MG tablet Take 40 mg by mouth once daily Active acetaminophen-c odeine (TYLENOL #3) 300-30 MG tablet Take 1 tablet by mouth every 6 hours as needed for Pain 15 tablet 8 Active Additional Information Patient not taking.Reported on 05/08/2019 amLODIPine (NORVASC) 5 MG tablet Take 1 tablet by mouth once daily 90 tablet 5 9 Active Additional Information Patient not taking.Reported on [...] on file Legal Sex Female 9:14 AM FACTORY LAY OUT ENGINEER Gender Identity Not on file Sexual Orientation Not on file Last Filed Vital Signs Vital Sign Reading Time Taken Comments Blood Pressure 156/71 05/08/2019 12:54 PM FACTORY LAY OUT ENGINEER Pulse 64 05/08/2019 12:54 PM FACTORY LAY OUT ENGINEER Temperature 36.4 C (97.6 F) 05/08/2019 12:54 PM FACTORY LAY OUT ENGINEER Respiratory Rate 16 11/01/2018 10:16 AM CDT Oxygen Saturation 97% 05/08/2019 12:54 PM FACTORY LAY OUT ENGINEER Inhaled Oxygen Concentration - - Weight 61.2 kg (135 lb) 05/08/2019 2:29 PM FACTORY LAY OUT ENGINEER Height 170.2 cm (5' 7) 05/08/2019 2:29 PM FACTORY LAY OUT ENGINEER Body Mass Index 21.14 05/08/2019 2:29 PM FACTORY LAY OUT ENGINEER Plan of Treatment Health Maintenance Due Date Last Done Comments BONE DENSITY TESTING 1941 DTAP/TDAP/TD VACCINES (1 - Tdap) 1960 PNEUMOCOCCAL VACCINE 50+ (1 of 1 - PCV) 1991 ZOSTER VACCINE (1 of 2) 1991 Respiratory Syncytial Virus (RSV) Vaccine Pt: or over 60 yrs (1 - 1-dose 75+ series) 2016 DEPRESSION SCREENING 06/25/2024 COVID-19 VACCINE (1 - 2024- season) 2025 INFLUENZA VACCINE (#1) 2025 , 06/05/2018, 05/02/2017, Additional history exists HEPATITIS B VACCINE Aged Out No longe r eligible based on patient's age to complete this topic HIB VACCINE Aged Out No longer eligi ble based on patient's age to complete this topic HPV VACCINE Aged Out No longer eligi ble based on patient's age to complete this topic MENINGOCOCCAL (Group B) VACCINE SHARED DECISION-MAKING Aged Out No longer eligible based on patient's age to complete this topic MENINGOCOCCAL GROUPS A/C/Y/W VACCINE Aged Out No longer eligible based on patient's age to complete this topic Medical Devices Implanted Type Area Document Control Supervisor Device Identifier Shelf Expiration Date Model / Serial / Lot Excluder C3 28mm X 12.0mm X 16cm - [id number] Implanted:Qty: 1 on 12/09/2014 by Chuck Anderson MD at [facility] Left: Groin [employer] 07/25/2017 [id number] / [id number] / Grft Excluder Contra 12mm X 120mm Implanted:Qty: 1 on 12/09/2014 by Chuck Anderson MD at [facility] Left: Groin [employer] [id number] / / Insurance MEDICARE [facility] MEDICA[facility] - [place] Advance Directives * Full Code (Latest Code Status on File) Date Activated Date Inactivated Comments 12/09/2014 2:47 PM 12/10/2014 11:40 AM Care Teams Warehouse Packer Relationship Specialty Start Date End Date Urbano Gonzalez MD [address] [address] PCP - General Internal Medicine 04/25/16 Anya Whittaker, RN Quality Technician 12/09/14
[2025-06-17 19:40] VITALS: BP 107/69; PULSE 78; RESP 18; TEMP 36.4; O2SAT 99
--- NOTE | 2025-06-17 20:01 | ECG_ITS ---
Test Date: 2025-06-17 23:59:01 Measurements Intervals [place] Rate: 66 P: 222 WV: 204 QRS: 80 QRSD: 82 T: 75 QT: 381 QTc: 402 Interpretive Statements ELECTRONIC ATRIAL PACEMAKER BASELINE ARTIFACT- I, II, III, AVR, AVL, AVF, V1-V6 ATYPICAL ECG No previous ECG available for comparison Electronically Signed On 06-18-2025 08:56:27 MERCHANDISE PLANNER by Sumanth Carrera D.O.
[2025-06-17 23:51] VITALS: PULSE 76
[2025-06-17 23:52] VITALS: BP 146/68; PULSE 68; RESP 19; O2SAT 99
[2025-06-17 23:54] VITALS: O2SAT 100
[2025-06-18] VITALS (32 sets, daily range): BP systolic 105–160; BP diastolic 58–93; PULSE 60–104; RESP 10–28; O2SAT 98–100
[2025-06-18 00:30] LABS: Hematocrit 33.9 % (37.0-47.0); Hemoglobin 10.9 g/dL (12.0-15.0); Immature Granulocyte Percent A 0.3 % (0-0.5); Lymphocytes Absolute Auto 1.78 K/mm3 (0.9-3.2); Mean Corpuscular HGB Conc 32.2 g/dl (32-36); Mean Corpuscular Hemoglobin 30.4 pg (26-34); Mean Corpuscular Volume 94.4 fl (80-100); Nucleated Red Blood Cells Absolute Auto 0.000 K/mm3 (0.0-0.012); Nucleated Red Blood Cells Perc 0.0 % (0.0-0.2); Platelet Count Result 277 k/mm3 (150-375); Red Blood Count 3.59 M/mm3 (4.2-5.4); White Blood Count 6.4 K/mm3 (4.5-10.0)
[2025-06-18 00:45] LABS: Alanine Aminotransferase 16 U/L (6-35); Albumin Level 4.0 g/dL (3.5-5.1); Alkaline Phosphatase 89 U/L (38-126); Anion Gap 6 mmol/L (4-12); Aspartate Amino Transferase 28 U/L (14-36); Bilirubin,Total 0.5 mg/dL (0.2-1.3); Blood Urea Nitrogen 16 mg/dL (7-17); Calcium 9.4 mg/dL (8.4-10.2); Carbon Dioxide 26 mmol/L (22-30); Chloride 106 mmol/L (98-107); Estimated CRCL calculation 35 ml/min; Estimated Glomerular Filt Rate 58; Glucose 90 mg/dL (65-110); Potassium 3.7 mmol/L (3.4-5.0); Sodium 138 mmol/L (137-145); Total Protein 7.5 g/dL (6.3-8.2)
[2025-06-18 02:14] LABS: Magnesium 1.5 mg/dL (1.6-2.3)
[2025-06-18 02:25] LABS: NT Pro B Type Natriuretic Pept 420 pg/mL (19.9-100); Troponin I < 0.012 ng/mL (0.000-0.034)
[2025-06-18] MEDS: MAGNESIUM SULF 2 GM/WATER 50ML 2 GM/50 ML BAG IVPB (04:35)
[2025-06-18 05:09] LABS: Troponin I < 0.012 ng/mL (0.000-0.034)
[2025-06-18 05:24] LABS: Influenza A QL RT-PCR Negative (Negative); Influenza B QL RT-PCR Negative (Negative); RSV RNA, RT-PCR Negative (Negative); SARS-CoV-2 RNA PCR Negative (Negative)
--- NOTE | 2025-06-18 05:44 | ED_ITS ---
HPI - General Adult General Chief complaint: Shortness of Breath/Dyspnea Stated complaint: SOB Time Seen by Provider: 06/18/25 00:38 History of Present Illness HPI narrative: patient is a 84 female who presents emergency department chief complaint of shortness of breath patient states his progressively worse. He states that he has been worse over the last 1-2 months. patient reports that she had an outpatient esophageal expansion procedure 2 days ago and recently had thrush in her throat patient stated that she felt short of breath and reports that she had a room air sat of 87% upon arrival to the emergency depart the patient is feeling better reports no fever Related Data Allergies Allergy/AdvReac Type Severity Reaction Status Date / Time Aminoglycosides Allergy Mild Rash Unverified 07/15/19 13:17 bacitracin Allergy Mild Rash Unverified 07/15/19 13:17 lidocaine Allergy Mild MAKES Unverified 07/15/19 13:17 HEART RACE neomycin Allergy Mild Rash Unverified 07/15/19 13:17 propoxyphene Allergy Mild STOMACH Unverified 07/15/19 13:17 UPSET acetaminophen Allergy Unknown Unknown Verified 07/15/19 13:17 cyclobenzaprine Allergy Unknown Unknown Verified 07/15/19 13:17 epinephrine Allergy Unknown Unknown Verified 07/15/19 13:17 tramadol Allergy Unknown Unknown Verified 07/15/19 13:17 POLYMYXINBSULF Allergy Mild Rash Uncoded 07/15/19 13:17 Review of Systems 2 Review of Systems: A 10 system review of systems was completed on the patient and is negative except for what is stated in the HPI. Nursing and ancillary documentation was reviewed. PMFSH Past Medical History Medical History History of hyperlipidemia History of hypertension Social History Social History Substance use: never Exam 2 Narrative: GENERAL: Well-appearing, well-nourished, and in no acute distress. HEAD: Normocephalic, atraumatic. EYES: PERRLA and EOMI. ENT: Nares clear, no rhinorrhea or epistaxis. Mucous membranes moist. NECK: Supple. CHEST: Clear to auscultation. No respiratory distress. HEART: Regular rate and rhythm. No murmur heard. Normal peripheral pulses. ABDOMEN: Soft, nontender, nondistended, normal active bowel sounds. EXTREMITIES: Normal range of motion. No edema. SKIN: Warm, dry, no rash. NEURO: No focal deficits. Alert and oriented x3. PSYCH: Normal mood and affect. Course Vital Signs Vital signs: Vital Signs Temperature 36.4 C 06/17/25 19:40 Pulse Rate 78 06/17/25 19:40 Respiratory Rate 18 06/17/25 19:40 Blood Pressure 107/69 06/17/25 19:40 Pulse Oximetry 99 06/17/25 19:40 Oxygen Delivery Room Air 06/17/25 19:40 Temperature 36.4 C 06/17/25 19:40 Pulse Rate 77 06/18/25 06:01 Respiratory Rate 15 06/18/25 06:01 Blood Pressure 114/63 06/18/25 06:01 Pulse Oximetry 100 06/18/25 06:01 Oxygen Delivery Room Air 06/17/25 23:54 MDM Differential Diagnosis Differential Diagnosis: differential diagnosis includes pneumonia, ACS, CHF, electrolyte abnormality laboratory studies were obtained on the patient showed normal CBC CMP was within normal limits including magnesium was low at 1.5 the patient was given 2 g of magnesium BNP was 420 troponin was 0 hour and 3 hour COVID flu and RSV are negative chest x-ray showed no focal infiltrate patient is feeling much better at this time and would like to go home patient should follow-up with her primary care provider Lab Data 06/18/25 00:23 06/18/25 00:23 Labs: Lab Results 06/18/25 06/18/25 Range/Units 00:23 04:24 WBC 6.4 (4.5-10.0) K/mm3 RBC 3.59 L (4.2-5.4) M/mm3 Hgb 10.9 L (12.0-15.0) g/dL Hct 33.9 L (37.0-47.0) % MCV 94.4 (80-100) fl MCH 30.4 (26-34) pg MCHC 32.2 (32-36) g/dl RDW 13.8 (11.5-14.5) % Plt Count 277 (150-375) k/mm3 MPV 9.1 (7.4-10.4) fl Immature Gran % (Auto) 0.3 (0-0.5) % Neut % (Auto) 60.4 (45.5-73.1) % Lymph % (Auto) 27.9 (18.3-44.2) % [place] % (Auto) 8.3 (2.6-8.5) % Eos % (Auto) 2.3 (0-4.4) % Baso % (Auto) 0.8 (0.2-1.2) % Lymph # (Auto) 1.78 (0.9-3.2) K/mm3 [place] # (Auto) 0.5 (0.1-0.6) K/mm3 Eos # (Auto) 0.2 (0-0.3) K/mm3 Baso # (Auto) 0.1 (0.0-0.1) K/mm3 Abs Immat Gran (auto) 0.02 (0.00-0.031) K/mm3 Absolute Neuts (auto) 3.9 (1.3-6.7) K/mm3 Absolute Nucleated RBC 0.000 (0.0-0.012) K/mm3 Nucleated RBC % 0.0 (0.0-0.2) % Sodium 138 (137-145) mmol/L Potassium 3.7 (3.4-5.0) mmol/L Chloride 106 (98-107) mmol/L Carbon Dioxide 26 (22-30) mmol/L Anion Gap 6 (4-12) mmol/L BUN 16 (7-17) mg/dL Creatinine 0.93 (0.7-1.0) mg/dL Estim Creat Clear Calc 35 ml/min Estimated GFR 58 L (59 - ) Glucose 90 (65-110) mg/dL Calcium 9.4 (8.4-10.2) mg/dL Magnesium 1.5 L (1.6-2.3) mg/dL Total Bilirubin 0.5 (0.2-1.3) mg/dL AST 28 (14-36) U/L ALT 16 (6-35) U/L Alkaline Phosphatase 89 (38-126) U/L Troponin I < 0.012 < 0.012 (0.000-0.034) ng/mL NT-Pro-B Natriuret Pep 420 H (19.9-100) pg/mL Total Protein 7.5 (6.3-8.2) g/dL Albumin 4.0 (3.5-5.1) g/dL Influenza A (RT-PCR) Negative (Negative) Influenza B (RT-PCR) Negative (Negative) RSV (RT-PCR) Negative (Negative) SARS-CoV-2 RNA (RT-PCR) Negative (Negative) Imaging Data Radiologist's impression: ITS Impressions Chest X-Ray 06/17/25 20:36 Impression: 1: No acute cardiopulmonary disease. Discharge Plan Discharge Clinical Impression: Dyspnea, Hypomagnesemia Patient Disposition: Home Condition: Stable Instructions: Antibiotic Form, Dyspnea (ED), Hypomagnesemia (ED) Patient Language: Thai Follow-up/Referrals: Carlos,Urbano Mckeon MD [Primary Care Provider, Unknown] Time of Disposition: 07:10
== END 2025-06-18 08:47 | disposition home or self-care (01) ==
PROVIDERS: Emergency Provider Emergency Medicine; PCP Internal Medicine
DX: R06.00 Dyspnea, unspecified (principal); E83.42 Hypomagnesemia; Z20.822 Contact with and (suspected) exposure to COVID-19; I10 Essential (primary) hypertension; E78.5 Hyperlipidemia, unspecified
CPT/HCPCS: 36415; 71046; 80053; 83735; 83880; 84484; 85025; 87637; 93005; 96365; 96366; 99284; J3475